=== PATIENT | female | born 1995 | race Caucasian/White ===

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

== ENCOUNTER → 2017-06-06 | Outpatient (CLI) | payer OTHER ==
[2017-06-06 12:57] LABS: BASO % 0.6 %; BASO ABS # 0.03 K/uL (0-0.2); EOS % 2.1 %; EOS ABS # 0.11 K/uL (0-0.5); HEMATOCRIT 43.1 % (37-47); HEMOGLOBIN 14.8 g/dL (12.0-16.0); IG# 0.01 K/uL (0.00-0.02); LYMPH % 40.4 %; LYMPH ABS # 2.12 K/uL (1.2-3.4); MEAN CELL VOLUME 87.8 fL (80-100); MEAN CORPUSCULAR HEMOGLOBIN 30.1 pg (25-34); MEAN CORPUSCULAR HGB CONC 34.3 g/dl (32-36); MEAN PLATELET VOLUME 9.6 fL (7.4-10.4); MONO % 5.3 %; MONO ABS # 0.28 K/uL (0.11-0.59); NEUT % 51.4 %; PLATELET COUNT 308 K/uL (130-400); RED CELL DISTRIBUTION WIDTH CV 13.4 % (11.5-14.5); RED CELL DISTRIBUTION WIDTH SD 42.9 fL (36.4-46.3); WHITE BLOOD COUNT 5.25 K/uL (4.8-10.8)
== END | disposition home or self-care (01) ==
LOC: C.LABPBG 07:56
PROVIDERS: ATTEND Physician Assistant
DX: Z13.21 Encounter for screening for nutritional disorder (principal); R53.83 Other fatigue

== ENCOUNTER → 2017-06-09 | Outpatient (CLI) | payer OTHER ==
--- NOTE | 2017-06-09 16:00 | DIAGNOSTIC IMAGING REPORT ---
SOFT TISS HEAD/NECK-THYROID CLINICAL HISTORY: 21 years-old Female with CERVICAL LYMPHADENOPATHY. Chronic enlarged cervical lymph nodes COMPARISON: CT soft tissue neck 06/29/2016 TECHNIQUE: Multiple real time sonographic images of the neck were obtained accessing liriano scale appearance and color doppler flow. FINDINGS: Lymph nodes of the bilateral neck are seen, normal in size on the left measuring up to 8 mm in short axis with normal fatty bishop. Lymph nodes with normal echogenic fatty bishop are also seen on the right, largest of which measure up to 1.0 cm in short axis, upper limits of normal. No pathologically enlarged lymph nodes are identified. IMPRESSION: No pathologically enlarged lymph nodes are identified. Mildly prominent lymph node of the right neck measures up to 1.0 cm in short axis, upper limits of normal and is likely physiologic. Correlation with clinical exam and patient history recommended. The above report was generated using voice recognition software. It may contain grammatical, syntax or spelling errors. Electronically signed by: Cb Olmstead M.D. 06/09/2017 3:58 PM Dictated Date/Time: 06/09/2017 3:54 PM
== END | disposition home or self-care (01) ==
LOC: C.ULTR 15:29
PROVIDERS: ATTEND Physician Assistant
DX: R59.0 Localized enlarged lymph nodes (principal)

== ENCOUNTER → 2017-06-09 | Outpatient (CLI) | payer OTHER ==
[2017-06-09 09:46] LABS: BLOOD UREA NITROGEN 5 mg/dl (7-18); CALCIUM 8.8 mg/dl (8.5-10.1); CARBON DIOXIDE 26 mmol/L (21-32); CHOLESTEROL 188 mg/dl (0-200); CREATININE 0.74 mg/dl (0.60-1.20); GLUCOSE 88 mg/dl (70-99); SODIUM 138 mmol/L (136-145)
[2017-06-09 09:49] LABS: LDL CHOLESTEROL CALCULATED 110 mg/dl
[2017-06-13 15:13] LABS: EBV EARLY ANTIGEN AB < 9.00 U/ML
== END | disposition home or self-care (01) ==
LOC: C.LAB1850 07:50
PROVIDERS: ATTEND Family Medicine
DX: R59.0 Localized enlarged lymph nodes (principal); F41.9 Anxiety disorder, unspecified; Z13.220 Encounter for screening for lipoid disorders

== ENCOUNTER → 2017-09-15 | Outpatient (CLI) | payer OTHER ==
--- NOTE | 2017-09-15 18:00 | DIAGNOSTIC IMAGING REPORT ---
TWO VIEW CHEST CLINICAL HISTORY: Dyspnea on exertion. Smoking history. FINDINGS: PA and lateral chest radiographs are obtained. No prior studies are available for comparison at the time of dictation. The cardiomediastinal silhouette is unremarkable. The lungs and pleural spaces are clear. There is no pneumothorax. The bony thorax appears intact. IMPRESSION: No active disease in the chest. Electronically signed by: Nj Holland M.D. 09/15/2017 5:58 PM Dictated Date/Time: 09/15/2017 5:58 PM
== END | disposition home or self-care (01) ==
LOC: C.RAD1850 16:19
PROVIDERS: ATTEND Family Medicine
DX: R06.09 Other forms of dyspnea (principal); F17.210 Nicotine dependence, cigarettes, uncomplicated

== ENCOUNTER → 2017-09-19 | Outpatient (CLI) | payer OTHER ==
--- NOTE | 2017-09-19 16:56 | DIAGNOSTIC IMAGING REPORT ---
SOFT TISSUE NECK WITHOUT CLINICAL HISTORY: R59.0 Cervical lymphadenopathy adenopathy TECHNIQUE: Transaxial acquisition with multi axial reformatted images COMPARISON STUDY: 06/29/2016 FINDINGS: Similar study compared to the prior exam. A palpable nodule similar compared to the prior study in terms of location relates to a grouping of nodes haven't in greatest overall dimension of 1.5 cm. This is unchanged. Several additional cervical nodes throughout the cervical chains bilaterally are unaltered from the prior exam. Appearance is nonspecific, possibly of cervical adenitis is a consideration given the patient's age. There does not appear to be evidence for progressive bolivar change. There is no evidence for airway compromise. The glottic and subglottic regions are unremarkable. IMPRESSION: 1. Unchanged nonspecific adenopathy throughout the cervical region compared to the prior exam. 2. The palpable nodularity relates to a cluster of nodes having a maximum conglomerate dimension of 1.5 cm. 3. This is unchanged from the prior study. 4. All additional nodes are unchanged. The above report was generated using voice recognition software. It may contain grammatical, syntax or spelling errors. Electronically signed by: Andrez Dobbins M.D. 09/19/2017 4:55 PM Dictated Date/Time: 09/19/2017 4:49 PM
== END | disposition home or self-care (01) ==
LOC: C.CTS 16:30
PROVIDERS: ATTEND Family Medicine
DX: R59.0 Localized enlarged lymph nodes (principal)

== ENCOUNTER 2023-02-08 18:21 | Inpatient (IN) ==
--- NOTE | 2023-02-08 18:30 | ED Triage Note ---
Date of Service February 08, 2023 Provider in Triage Author: Kalani Knight History of Present Illness This patient was briefly evaluated while in triage. An abbreviated physical exam was performed. This patient is a 27-year-old Female who presents to the ED for evaluation of chest pain, tested positive 01/31 for COVID. Pt states bilateral chest pain, abdomen pain, nausea/vomiting, weakness. Physical Exam Initial orders for labs and / or imaging were placed and patient was placed in the waiting area until a bed is available. Please see further documentation for the full ED course.
[2023-02-08] MEDS ORDERED: ONDANSETRON INJ 2 MG/ML 2 ML VIAL IV STA (18:32)
--- NOTE | 2023-02-08 19:41 | XRay Report ---
SINGLE VIEW CHEST CLINICAL HISTORY: Atypical chest pain FINDINGS: A PA chest radiograph is compared to study dated 02/05/2023. The cardiomediastinal silhouet te is unremarkable. There is an apparent airspace opacity at the left lung base. The right lung is cl ear. No pleural effusion or pneumothorax is seen. The bony thorax is grossly intact. IMPRESSION: There is an apparent airspace opacity at the left lung base which may represent superimpo sed soft tissue. Correlate clinically for evidence of pneumonia. A PA and lateral examination could b e considered for reassessment. ACT 112: Negative or not required by law. Electronically signed by: Nj Holland M.D. 02/08/2023 7:39 PM
[2023-02-08 20:01] LABS: Basophils # (auto) 0.05 K/uL (0.00-0.20); Basophils % (auto) 0.6 %; Eosinophils # (auto) 0.12 K/uL (0.00-0.50); Eosinophils % (auto) 1.3 %; Hematocrit (blood only) 45.4 % (37.0-47.0); Hemoglobin 16.7 g/dl (12.0-16.0); Immature Granulocytes # (auto) 0.04 K/uL (0.01-0.20); Immature Granulocytes % (auto) 0.4 %; Lymphocytes # (auto) 2.01 K/uL (1.20-3.40); Lymphocytes % (auto) 22.3 %; Mean Corpuscular Hemoglobin 30.3 pg (25.0-34.0); Mean Corpuscular Hgb Conc 36.8 g/dL (32.0-36.0); Mean Corpuscular Volume 82.4 fL (80.0-100.0); Mean Platelet Volume 10.3 fL (9.4-12.4); Monocytes # (auto) 0.58 K/uL (0.11-0.59); Monocytes % (auto) 6.4 %; Neutrophils # (auto) 6.23 K/uL (1.40-6.50); Platelet Count 240 K/uL (130-400); RDW Coefficient of Variation 11.9 % (11.5-14.5); RDW Standard Deviation 35.8 fL (36.4-46.3); Red Blood Count 5.51 M/uL (4.20-5.40); White Blood Count 9.03 K/ul (4.8-10.8)
[2023-02-08] MEDS: SODIUM CHLORIDE 0.9% 1,000 ML IV SCH ×4 (20:14→23:17)
[2023-02-08 20:19] LABS: Pregnancy Test, Serum Negative (Negative)
[2023-02-08 20:20] LABS: Alanine Aminotransferase 38 U/L (7-52); Albumin Globulin Ratio 1.2 (0.9-2); Albumin Level 4.4 gm/dl (3.4-5.0); Alkaline Phosphatase 68 U/L (34-104); Anion Gap 17 (3-11); Aspartate Aminotransferase 30 U/L (13-39); BUN Creatinine Ratio 17.8 (10-20); Bilirubin,Total 1.2 mg/dl (0.2-1.0); Blood Urea Nitrogen 13 mg/dl (6-23); Carbon Dioxide 17 mmol/L (21-32); Chloride 104 mmol/L (98-107); Est GFR (African American) 132.7 ml/min; Est GFR (Non-African American) 114.5 ml/min; Globulin 3.6 gm/dl (2.5-4.0); Glucose 73 mg/dl (70-99(Fasting)); Lipase 21 U/L (11-82); Potassium 4.1 mmol/L (3.5-5.1); Sodium 138 mmol/L (136-145)
[2023-02-08 20:25] LABS: Troponin I High Sensitivity < 2.3 pg/ml (0-14)
[2023-02-08 20:34] LABS: Appearance Urine Turbid (Clear); Bacteria Urine Automated 2+ (Negative); Bilirubin Urine Negative (Negative); Blood Urine Trace (Negative); Color Urine Orange; Epithelial Cell Urine Auto >30 /lpf (0-5); Glucose Urine UA Negative (Negative); Ketones Urine 4+ (Negative); Leukocyte Esterase Urine 1+ (Negative); Nitrite Urine Negative (Negative); Protein Urine 1+ (Negative); RBC Urine Automated 0-4 /hpf (0-4); Specific Gravity Urine 1.031 (1.000-1.030); Urobilinogen Urine Negative (Negative); WBC Urine Automated >30 /hpf (0-5); pH Urine 5.5 (4.5-7.5)
[2023-02-08 20:51] LABS: Cast Urine Automated 0 /lpf (0-5)
[2023-02-08] MEDS ORDERED: OPTIRAY 320 500ml IV ONE (20:55)
--- NOTE | 2023-02-08 21:24 | CT Scan Report ---
Exam(s): CT ABDOMEN + PELVIS With Contrast IV Amt: 88ML OPTIRAY 320 EXAM: CT Abdomen and Pelvis With Intravenous Contrast CLINICAL HISTORY: Abdomen pain. TECHNIQUE: Axial computed tomography images of the abdomen and pelvis with intravenous contrast. CTDI is 8.5 mGy and DLP is 380.88 mGy-cm. Automated exposure control was utilized for the study. A dose lowering technique was utilized adhering to the principles of ALARA. CONTRAST: Patient received 88ML OPTIRAY 320 of IV contrast COMPARISON: No relevant prior studies available. FINDINGS: Lung bases: Unremarkable. No mass. No consolidation. ABDOMEN: Liver: Unremarkable. No mass. Gallbladder and bile ducts: Unremarkable. No calcified stones. No ductal dilation. Pancreas: Unremarkable. No mass. No ductal dilation. Spleen: Unremarkable. No splenomegaly. Adrenals: Unremarkable. No mass. Kidneys and ureters: Unremarkable. No solid mass. No hydronephrosis. Stomach and bowel: Unremarkable. No obstruction. No mucosal thickening. PELVIS: Appendix: Normal appendix. Bladder: Unremarkable. No mass. Reproductive: Unremarkable as visualized. ABDOMEN and PELVIS: Intraperitoneal space: Trace free fluid in the pelvis is nonspecific. No free air. Bones/joints: No acute fracture. No dislocation. Soft tissues: Unremarkable. Vasculature: Unremarkable. No abdominal aortic aneurysm. Lymph nodes: Unremarkable. No enlarged lymph nodes. IMPRESSION: Trace free fluid in the pelvis is nonspecific. Otherwise, no acute finding. Electronically signed by: Tamia Urena MD 02/08/23 21:23 PM
[2023-02-08] MEDS ORDERED: cefTRIAXone SODIUM 2,000 MG/50 ML BAG IV STA (21:58)
[2023-02-08] MEDS ORDERED: METOCLOPRAMIDE HCL INJ 5 MG/ML 2 ML VIAL IV STA (22:04)
[2023-02-08] MEDS ORDERED: ALUMINUM/MAGNESIUM SUSP 30 ML UDC PO STA (22:07)
--- NOTE | 2023-02-08 22:07 | Emergency Department Note ---
Impression & Plan Abdominal pain, Nausea & vomiting, Dehydration, Metabolic acidosis ED Provider Note NAME: TU ELY AGE: 27 SEX: F : 1995 ARRIVES VIA: Walk-In INFORMANT: Patient ED PROVIDER(S): Burke Morrow DO CHIEF COMPLAINT: abdominal pain HPI: Patient is a 27-year-old female who presents ER for epigastric abdominal pain which started after [place]. She notes she was positive for COVID and had some cough and congestion that has gone away. She notes nausea, vomiting, and pain in the epigastric region has been present since then but got worse recently. She notes that she has follow-up with her PCP and was seen here as well for this. She notes she is unable to eat or drink anything. No dysuria, urgency, or frequency. No shortness of breath. No chest pain currently. No other exacerbating or remitting factors. ADDITIONAL HISTORY OBTAINED: Per HPI Chronic Medical/Social Conditions Affecting Care: Per HPI PAST MEDICAL HISTORY:See Below PAST SURGICAL HISTORY:See Below FAMILY HISTORY:See Below SOCIAL HISTORY:See Below HOME MEDICATIONS:See Below ALLERGIES:See Below VITALS:See Below PHYSICAL EXAMINATION: GENERAL: Sitting up in bed, alert, tearful, holding her abdomen EYE EXAM: normal conjunctiva. OROPHARYNX:mucous membranes are dry NECK: supple, no nuchal rigidity, no adenopathy, non-tender LUNGS: Clear to auscultation. Normal chest wall mechanics HEART: no murmurs, S1 normal and S2 normal ABDOMEN: abdomen soft, TTP in epigastric region, normo-active bowel sounds, no masses, no rebound or guarding. UPPER EXTREMITIES: upper extremities are grossly normal. LOWER EXTREMITIES: No pitting edema. NEURO EXAM: Normal sensorium, cranial nerves II-XII grossly intact, normal speech, no gross weakness of arms, no gross weakness of legs. MEDICAL DECISION MAKING: Patient is a 27-year-old female who presents ER for above-stated complaint. IV was established blood work was obtained. Labs show no significant leukocytosis. No anemia. VBG with pH 7.2 which was obtained as her BMP had a bicarb of 17. Bicarb on VBG was 14. Bilirubin normal 1.2. LFTs troponin and lipase were negative. hCG was negative. UA was contaminated but patient was covered with IV antibiotics. She was also given IV fluids, Reglan, morphine and Phenergan. She still had vomiting while in the ER was discussed with the hospitalist for further evaluation management treatment and admission due to the persistent vomiting with a metabolic acidosis which was gapped. She was not in DKA. Chest x-ray per my initial interpretation showed no focal infiltrate. This was read by radiology and questioned a left lower lobe infiltrate. Upon review of the CT in the lower lungs there is no infiltrate. Patient was already given IV antibiotics. Will defer to the hospitalist for further treatment in setting of recent COVID pneumonia. Consults/Care Managements Discussions: Per [facility] Triage Nursing notes reviewed. Limited review of prior medical records performed Vital Signs: reviewed and remarkable for no significant abnormalities Differential diagnosis: Differential diagnoses includes but is not limited to gastritis, peptic ulcer disease, GERD, gallbladder disease, pancreatitis, small bowel obstruction, appendicitis, diverticulitis, hernia, urinary tract infection, torsion, perforation, trauma, infectious. ER treatment provided: See below Diagnostics interpreted by me include EKG and cardiac monitoring as listed below: -Cardiac Monitoring: An order was placed for continuous cardiac monitoring. The monitor shows a rate of 90 with sinus rhythm. -ECG: Sinus rhythm rate 82 Normal axis No PVCs QTc 455 -Laboratory studies:Interpreted by me as stated above in MDM and shown below. Imaging studies: Xrays: As interpreted by me: Chest x-ray with a left lower lobe infiltrate CTs show: CT abdomen pelvis was unremarkable and there is no obvious left lower lobe infiltrate Procedures:none Critical Care: None Past Med/Surg History Medical History (Updated 02/09/23 @ 01:45 by Burke Morrow DO) Palpitations Fatigue Dyspnea on exertion Chest pain Cervical lymphadenopathy Anxiety Family History (Updated 08/13/18 @ 16:31 by Jerel Grijalva) Mother Anxiety Hypertension Grandmother (Maternal) , 57 Brain cancer Grandfather (Paternal) Diabetes Kidney disease Denies family history of Ovarian cancer Prostate cancer Myocardial infarction Breast cancer Colorectal cancer Social History (Updated 08/13/18 @ 16:33 by Jerel Grijalva) Smoking Status: Current every day smoker Tobacco Type: E-cigarettes / Vaping packs per day: 0.5; Hx Alcohol Use: No Hx Substance Use: No Preferred Language: Macedonian Visual Impairment: No Limitations Hearing Ability: Normal marital status: Single marital status details: ORAL CONTRACEPTIVE USE Current Living Situation Comment: LIVES WITH [employer] current occupational status: employed current occupation: [employer] S[employer] Feels Safe at Home: Yes Dental Care, Regularly: Yes Physical Activity Frequency: Does not Exercise Allergies Allergies Allergy/AdvReac Type Severity Reaction Status Date / Time Pollen Allergy Intermediate Sneezing Uncoded 02/05/23 17:23 Home Meds Home Medications Medication Instructions Recorded Confirmed pantoprazole 20 mg tablet,delayed 20 mg PO DAILY 02/08/23 02/08/23 release rizatriptan 5 mg tablet 5 mg PO UD PRN Migraine Headache 02/08/23 02/08/23 Previous Rx's Medication Instructions Recorded ondansetron 4 mg disintegrating 4 mg PO Q6H PRN nausea and 02/05/23 tablet vomiting #15 tabs Results & Data (ED) Vital Signs Vital Signs - 24 hr 02/08/23 18:31 02/09/23 00:00 Temperature 36.6 C Temperature Source Temporal Artery Scan Pulse Rate 92 H Pulse Rate [Finger] 89 Respiratory Rate 18 18 Respiratory Effort / Characteristics Non-Labored Spontaneous Respiratory Depth Normal Respiratory Pattern Regular Blood Pressure 99/68 L Blood Pressure [Right Arm] 106/74 Blood Pressure Mean 78 Blood Pressure Mean [Right Arm] 84 Blood Pressure Position Sitting Pulse Oximetry 99 100 Oxygen Delivery Method Room Air Room Air Sepsis Recent Fever Within 48 Hours No Sepsis New/Unexplained Change in Mental Status N/A Sepsis Action Taken by Nursing No Action Required Laboratory Data 02/08/23 19:45 02/08/23 19:45 Lab Results 02/08/23 02/08/23 02/08/23 Range/Units 19:45 20:07 22:32 WBC 9.03 (4.8-10.8) K/ul RBC 5.51 H (4.20-5.40) M/uL Hgb 16.7 H (12.0-16.0) g/dl Hct 45.4 (37.0-47.0) % MCV 82.4 (80.0-100.0) fL MCH 30.3 (25.0-34.0) pg MCHC 36.8 H (32.0-36.0) g/dL RDW Std Deviation 35.8 L (36.4-46.3) fL RDW Coeff of Dominique 11.9 (11.5-14.5) % Plt Count 240 (130-400) K/uL MPV 10.3 (9.4-12.4) fL Immature Gran % (Auto) 0.4 % Neut % (Auto) 69.0 % Lymph % (Auto) 22.3 % Will % (Auto) 6.4 % Eos % (Auto) 1.3 % Baso % (Auto) 0.6 % Neut # (Auto) 6.23 (1.40-6.50) K/uL Lymph # (Auto) 2.01 (1.20-3.40) K/uL Will # (Auto) 0.58 (0.11-0.59) K/uL Eos # (Auto) 0.12 (0.00-0.50) K/uL Baso # (Auto) 0.05 (0.00-0.20) K/uL Immature Gran # (Auto) 0.04 (0.01-0.20) K/uL VBG pH 7.21 L (7.36-7.41) VBG pCO2 36 L (38-50) mmHg VBG pO2 35 mmHg VBG HCO3 14 mmol/L VBG O2 Saturation < 60.0 % VBG Base Excess -12.6 mEq/L Sodium 138 (136-145) mmol/L Potassium 4.1 (3.5-5.1) mmol/L Chloride 104 (98-107) mmol/L Carbon Dioxide 17 L (21-32) mmol/L Anion Gap 17 H (3-11) BUN 13 (6-23) mg/dl Creatinine 0.73 (0.6-1.2) mg/dl Est Cr Clr Drug Dosing Not Reportable Est GFR ( Amer) 132.7 ml/min Est GFR (Non-Af Amer) 114.5 ml/min BUN/Creatinine Ratio 17.8 (10-20) Glucose 73 (70-99(Fasting)) mg/dl Calcium 10.0 (8.6-10.3) mg/dl Total Bilirubin 1.2 H (0.2-1.0) mg/dl AST 30 (13-39) U/L ALT 38 (7-52) U/L Alkaline Phosphatase 68 (34-104) U/L Troponin I High Sens < 2.3 (0-14) pg/ml Total Protein 8.0 (6.0-8.3) gm/dl Albumin 4.4 (3.4-5.0) gm/dl Globulin 3.6 (2.5-4.0) gm/dl Albumin/Globulin Ratio 1.2 (0.9-2) Lipase 21 (11-82) U/L HCG, Qual Negative (Negative) Urine Color [place] Urine Appearance Turbid A (Clear) Urine pH 5.5 (4.5-7.5) Ur Specific [place] 1.031 H (1.000-1.030) Urine Protein 1+ H (Negative) Urine Glucose (UA) Negative (Negative) Urine Ketones 4+ H (Negative) Urine Blood Trace H (Negative) Urine Nitrite Negative (Negative) Urine Bilirubin Negative (Negative) Urine Urobilinogen Negative (Negative) Ur Leukocyte Esterase 1+ H (Negative) Urine WBC (Auto) >30 H (0-5) /hpf Urine RBC (Auto) 0-4 (0-4) /hpf U Hyaline Cast (Auto) 0 (0-5) /lpf U Epithel Cells (Auto) >30 H (0-5) /lpf Urine Bacteria (Auto) 2+ H (Negative) Administered Medications Discontinued Medications Al Hydrox/Mg Hydrox/Simethicone (Aluminum/Magnesium Susp 30 Ml Udc) 15 ml PO NOW STA Stop: 02/08/23 22:08 Last Admin: 02/08/23 23:17 Dose: Not Given Documented By: CLEMENTE Sodium Chloride (Nss) 1,000 mls @ 999 mls/hr IV .Q1H1M SANDRA Stop: 02/08/23 20:45 Last Infusion: 02/08/23 22:20 Dose: Infused Documented By: Admin: 02/08/23 21:16 Dose: 999 mls/hr Documented By: Infusion: 02/08/23 21:15 Dose: Infused Documented By: Admin: 02/08/23 20:14 Dose: 999 mls/hr Documented By: LILIA Ceftriaxone Sodium (Rocephin) 2,000 mg in 50 mls @ 100 mls/hr IV NOW STA Stop: 02/08/23 22:27 Last Infusion: 02/08/23 23:09 Dose: Infused Documented By: Admin: 02/08/23 22:34 Dose: 100 mls/hr Documented By: RICHARD Sodium Chloride (Nss) 1,000 mls @ 999 mls/hr IV .Q1H1M SANDRA Stop: 02/09/23 00:00 Last Infusion: 02/09/23 00:40 Dose: Infused Documented By: Admin: 02/08/23 23:17 Dose: 999 mls/hr Documented By: Infusion: 02/08/23 23:17 Dose: Infused Documented By: Admin: 02/08/23 22:34 Dose: 999 mls/hr Documented By: RICHARD Promethazine HCl (Phenergan) 12.5 mg in 50.5 mls @ 202 mls/hr IV NOW STA Stop: 02/08/23 23:15 Last Infusion: 02/08/23 23:33 Dose: Infused Documented By: Admin: 02/08/23 23:17 Dose: 202 mls/hr Documented By: CLEMENTE Ioversol (Optiray 320 500ml) 88 ml IV ONCE ONE Stop: 02/08/23 20:56 Last Admin: 02/08/23 20:55 Dose: 88 ml Documented By: SHAYY Metoclopramide HCl (Metoclopramide Hcl Inj 5 Mg/Ml 2 Ml Vial) 10 mg IV NOW STA Stop: 02/08/23 22:05 Last Admin: 02/08/23 22:34 Dose: 10 mg Documented By: RICHARD Morphine Sulfate (Morphine Sulfate 4 Mg/Ml 1 Ml Carp\Vial) 4 mg IV NOW STA Stop: 02/08/23 23:02 Last Admin: 02/08/23 23:17 Dose: 4 mg Documented By: CLEMENTE Ondansetron HCl (Ondansetron Inj 2 Mg/Ml 2 Ml Vial) 4 mg IV NOW STA Stop: 02/08/23 18:33 Last Admin: 02/08/23 20:19 Dose: 4 mg Documented By: LILIA Imaging Data Radiologist's Impression: Abdomen/Pelvis CT 02/08/23 18:32 Exam(s): CT ABDOMEN + PELVIS With Contrast IV Amt: 88ML OPTIRAY 320 EXAM: CT Abdomen and Pelvis With Intravenous Contrast CLINICAL HISTORY: Abdomen pain. TECHNIQUE: Axial computed tomography images of the abdomen and pelvis with intravenous contrast. CTDI is 8.5 mGy and DLP is 380.88 mGy-cm. Automated exposure control was utilized for the study. A dose lowering technique was utilized adhering to the principles of ALARA. CONTRAST: Patient received 88ML OPTIRAY 320 of IV contrast COMPARISON: No relevant prior studies available. FINDINGS: Lung bases: Unremarkable. No mass. No consolidation. ABDOMEN: Liver: Unremarkable. No mass. Gallbladder and bile ducts: Unremarkable. No calcified stones. No ductal dilation. Pancreas: Unremarkable. No mass. No ductal dilation. Spleen: Unremarkable. No splenomegaly. Adrenals: Unremarkable. No mass. Kidneys and ureters: Unremarkable. No solid mass. No hydronephrosis. Stomach and bowel: Unremarkable. No obstruction. No mucosal thickening. PELVIS: Appendix: Normal appendix. Bladder: Unremarkable. No mass. Reproductive: Unremarkable as visualized. ABDOMEN and PELVIS: Intraperitoneal space: Trace free fluid in the pelvis is nonspecific. No free air. Bones/joints: No acute fracture. No dislocation. Soft tissues: Unremarkable. Vasculature: Unremarkable. No abdominal aortic aneurysm. Lymph nodes: Unremarkable. No enlarged lymph nodes. IMPRESSION: Trace free fluid in the pelvis is nonspecific. Otherwise, no acute finding. Electronically signed by: Tamia Urena MD 02/08/23 21:23 PM Chest X-Ray 02/08/23 18:32 SINGLE VIEW CHEST CLINICAL HISTORY: Atypical chest pain FINDINGS: A PA chest radiograph is compared to study dated 02/05/2023. The cardiomediastinal silhouette is unremarkable. There is an apparent airspace opacity at the left lung base. The right lung is clear. No pleural effusion or pneumothorax is seen. The bony thorax is grossly intact. IMPRESSION: There is an apparent airspace opacity at the left lung base which may represent superimposed soft tissue. Correlate clinically for evidence of pneumonia. A PA and lateral examination could be considered for reassessment. ACT 112: Negative or not required by law. Electronically signed by: Nj Holland M.D. 02/08/2023 7:39 PM Discharge Plan Visit Data Chief Complaint: Chest Pain Stated Complaint: CHEST PAIN, ABDOMINAL PAIN, COVID, VOMITING ED Provider: Burke Morrow Discharge Problem: Abdominal pain, Nausea & vomiting, Dehydration, Metabolic acidosis Forms Stand Alone Forms: My [facility] Prescriptions Prescriptions: No Action ondansetron 4 mg tablet,disintegrating 4 mg PO Q6H PRN (Reason: nausea and vomiting) Qty: 15 0RF pantoprazole 20 mg tablet,delayed release (DR/EC) 20 mg PO DAILY rizatriptan 5 mg tablet 5 mg PO UD PRN (Reason: Migraine Headache) Rx Instructions: take 5 mg orally once at onset of headache, may repeat once after 2 hour if needed Referrals Referrals: Bailee Hartley M.D. [Primary Care Provider] - Discharge Problem: Abdominal pain Qualifiers: Abdominal location: unspecified location Qualified Code(s): R10.9 - Unspecified abdominal pain Nausea & vomiting Qualifiers: Vomiting type: unspecified Qualified Code(s): R11.2 - Nausea with vomiting, unspecified
[2023-02-08 22:45] LABS: Base Excess VBG -12.6 mEq/L; HCO3 VBG 14 mmol/L; Oxygen Saturation VBG < 60.0 %; PCO2 VBG 36 mmHg (38-50); PO2 VBG 35 mmHg; pH VBG 7.21 (7.36-7.41)
[2023-02-08] MEDS ORDERED: PROMETHAZINE 12.5 MG/50.5 ML BAG IV STA (23:01)
[2023-02-08] MEDS ORDERED: MoRPHine SULFATE 4 MG/ML 1 ML CARP\\VIAL IV STA (23:01)
[2023-02-09] MEDS ORDERED: SODIUM BICARB 8.4% INJ 50 MEQ/50 ML SYR IV STA (01:55)
[2023-02-09] MEDS ORDERED: MoRPHine SULFATE 4 MG/ML 1 ML CARP\\VIAL IV STA (01:55)
[2023-02-09] MEDS: D5W AND 1/2NSS 1,000 ML IV SCH ×3 (03:12→20:02)
--- NOTE | 2023-02-09 04:05 | History & Physical Report ---
Date of Service February 09, 2023 Assessment & Plan (1) Nausea & vomiting: Plan: 27-year-old female with past medical history significant for allergic rhinitis, vitamin D deficiency, history of intractable migraine, iron deficiency anemia secondary to inadequate dietary iron intake, comes because of ongoing nausea and vomiting some chest discomfort and shortness of breath since several days. She says symptoms started after she was diagnosed with COVID in January 29, 2023. She was in the ER on but she improved after IV fluids and DuoNebs and discharged home on albuterol inhaler. Patient still having persistent nausea and vomiting not able to take anything. Not eating. Albuterol inhaler is not working. Having abdominal pain. On and off chest discomfort and shortness of breath. Has some mild cough. Has some headache. Vision is okay. No runny nose or sore throat currently. Currently afebrile. Did not move her bowels for several days. Not micturating much. Hemodynamically stable. Nausea and vomiting Abdominal pain States ongoing since she was diagnosed COVID in January 29, 2023 Was in the ER on February 05, 2023 but improved with the fluids and DuoNebs Poor oral intake Will continue IV fluids, IV antiemetics as needed, IV morphine as needed for abdominal pain and IV Pepcid If persistent will consult GI UTI Possible cause of her symptoms Empiric Rocephin Will follow the cultures Metabolic acidosis Anion gap Possibly from nausea vomiting and starvation D5 normal saline at rate of 125 mill per hour Will follow repeat labs and repeat ABG chest pain and shortness of breath Will get chest x-ray PA and lateral view Initial EKG and troponin negative We will follow repeat EKG and troponins DuoNebs as needed for now DVT prophylaxis SCDs for now Disposition Med/tele Full code History of Present Illness Chief Complaint: Nausea and vomiting and chest discomfort Primary Care Provider: Bailee Hartley 27-year-old female with past medical history significant for allergic rhinitis, vitamin D deficiency, history of intractable migraine, iron deficiency anemia secondary to inadequate dietary iron intake, comes because of ongoing nausea and vomiting some chest discomfort and shortness of breath since several days. She says symptoms started after she was diagnosed with COVID on January 29, 2023. She was in the ER on but she improved after IV fluids and DuoNebs and discharged home on albuterol inhaler. Patient still having persistent nausea and vomiting not able to take anything. Not eating. Albuterol inhaler is not working. Having abdominal pain. On and off chest discomfort and shortness of breath. Has some mild cough. Has some headache. Vision is okay. No runny nose or sore throat currently. Currently afebrile. Did not move her bowels for several days. Not micturating much. Hemodynamically stable. Past medical history. As mentioned above Past surgical history. Dental surgery. Social history. Former smoker. No alcohol use. No drug use. Family history. Maternal grandmother had cancer. Maternal grandfather had diabetes. Mother has hypertension. Allergies Allergy/AdvReac Type Severity Reaction Status Date / Time Pollen Allergy Intermediate Sneezing Uncoded 02/05/23 17:23 Home Medications Medication Instructions Recorded Confirmed Type ondansetron 4 mg disintegrating 4 mg PO Q6H PRN nausea and 02/05/23 02/08/23 Rx tablet vomiting #15 tabs pantoprazole 20 mg tablet,delayed 20 mg PO DAILY 02/08/23 02/08/23 History release rizatriptan 5 mg tablet 5 mg PO UD PRN Migraine Headache 02/08/23 02/08/23 History Past Med/Surg History Medical History (Updated 02/09/23 @ 01:45 by Burke Morrow DO) Palpitations Fatigue Dyspnea on exertion Chest pain Cervical lymphadenopathy Anxiety Family History (Updated 08/13/18 @ 16:31 by Jerel Grijalva) Mother Anxiety Hypertension Grandmother (Maternal) , 57 Brain cancer Grandfather (Paternal) Diabetes Kidney disease Denies family history of Ovarian cancer Prostate cancer Myocardial infarction Breast cancer Colorectal cancer Social History (Updated 08/13/18 @ 16:33 by Jerel Grijalva) Smoking Status: Current every day smoker Tobacco Type: E-cigarettes / Vaping packs per day: 0.5; Hx Alcohol Use: No Hx Substance Use: No Preferred Language: Mosotho Visual Impairment: No Limitations Hearing Ability: Normal marital status: Single marital status details: ORAL CONTRACEPTIVE USE Current Living Situation Comment: LIVES WITH [employer] current occupational status: employed 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 ENT- oropharynx dry Neck- supple, no JVD. Lungs- clear to auscultation no wheezing or crackles. Heart- regular rhythm; no murmur, no gallop. Abdomen- normal bowel sounds, soft, diffuse mild tender no distension Extremities- no pretibial edema, no erythema seen. Neuro- alert, oriented x 3; PERRL no facial palsy; no dysarthria; moves extremities. Skin- warm & dry Results & Data Results & Data Vital Signs (Past 12 Hours) Vital Signs Temp Pulse Pulse Resp BP BP Pulse Ox 02/09/23 03:00 72 18 108/77 96 02/09/23 00:00 89 18 106/74 100 02/08/23 18:31 36.6 C 92 H 18 99/68 L 99 O2 Del Method 02/09/23 03:00 Room Air 02/09/23 00:00 Room Air 02/08/23 18:31 Room Air Diagnostic Findings Laboratory Results WBC 9.03 K/ul (4.8-10.8) 02/08/23 19:45 RBC 5.51 M/uL (4.20-5.40) H 02/08/23 19:45 Hgb 16.7 g/dl (12.0-16.0) H 02/08/23 19:45 Hct 45.4 % (37.0-47.0) 02/08/23 19:45 MCV 82.4 fL (80.0-100.0) 02/08/23 19:45 MCH 30.3 pg (25.0-34.0) 02/08/23 19:45 MCHC 36.8 g/dL (32.0-36.0) H 02/08/23 19:45 RDW Std Deviation 35.8 fL (36.4-46.3) L 02/08/23 19:45 RDW Coeff of Dominique 11.9 % (11.5-14.5) 02/08/23 19:45 Plt Count 240 K/uL (130-400) 02/08/23 19:45 MPV 10.3 fL (9.4-12.4) 02/08/23 19:45 Immature Gran % (Auto) 0.4 % 02/08/23 19:45 Neut % (Auto) 69.0 % 02/08/23 19:45 Lymph % (Auto) 22.3 % 02/08/23 19:45 [place] % (Auto) 6.4 % 02/08/23 19:45 Eos % (Auto) 1.3 % 02/08/23 19:45 Baso % (Auto) 0.6 % 02/08/23 19:45 Neut # (Auto) 6.23 K/uL (1.40-6.50) 02/08/23 19:45 Lymph # (Auto) 2.01 K/uL (1.20-3.40) 02/08/23 19:45 [place] # (Auto) 0.58 K/uL (0.11-0.59) 02/08/23 19:45 Eos # (Auto) 0.12 K/uL (0.00-0.50) 02/08/23 19:45 Baso # (Auto) 0.05 K/uL (0.00-0.20) 02/08/23 19:45 Immature Gran # (Auto) 0.04 K/uL (0.01-0.20) 02/08/23 19:45 VBG pH 7.21 (7.36-7.41) L 02/08/23 22:32 VBG pCO2 36 mmHg (38-50) L 02/08/23 22:32 VBG pO2 35 mmHg 02/08/23 22:32 VBG HCO3 14 mmol/L 02/08/23 22:32 VBG O2 Saturation < 60.0 % 02/08/23 22:32 VBG Base Excess -12.6 mEq/L 02/08/23 22:32 Sodium 138 mmol/L (136-145) 02/08/23 19:45 Potassium 4.1 mmol/L (3.5-5.1) 02/08/23 19:45 Chloride 104 mmol/L (98-107) 02/08/23 19:45 Carbon Dioxide 17 mmol/L (21-32) L 02/08/23 19:45 Anion Gap 17 (3-11) H 02/08/23 19:45 BUN 13 mg/dl (6-23) 02/08/23 19:45 Creatinine 0.73 mg/dl (0.6-1.2) 02/08/23 19:45 Est Cr Clr Drug Dosing Not Reportable 02/08/23 19:45 Est GFR ( Amer) 132.7 ml/min 02/08/23 19:45 Est GFR (Non-Af Amer) 114.5 ml/min 02/08/23 19:45 BUN/Creatinine Ratio 17.8 (10-20) 02/08/23 19:45 Glucose 73 mg/dl (70-99(Fasting)) 02/08/23 19:45 Calcium 10.0 mg/dl (8.6-10.3) 02/08/23 19:45 Total Bilirubin 1.2 mg/dl (0.2-1.0) H 02/08/23 19:45 AST 30 U/L (13-39) 02/08/23 19:45 ALT 38 U/L (7-52) 02/08/23 19:45 Alkaline Phosphatase 68 U/L (34-104) 02/08/23 19:45 Troponin I High Sens < 2.3 pg/ml (0-14) 02/08/23 19:45 Total Protein 8.0 gm/dl (6.0-8.3) 02/08/23 19:45 Albumin 4.4 gm/dl (3.4-5.0) 02/08/23 19:45 Globulin 3.6 gm/dl (2.5-4.0) 02/08/23 19:45 Albumin/Globulin Ratio 1.2 (0.9-2) 02/08/23 19:45 Lipase 21 U/L (11-82) 02/08/23 19:45 HCG, Qual Negative (Negative) 02/08/23 19:45 Urine Color [place] 02/08/23 20:07 Urine Appearance Turbid (Clear) A 02/08/23 20:07 Urine pH 5.5 (4.5-7.5) 02/08/23 20:07 Ur Specific [place] 1.031 (1.000-1.030) H 02/08/23 20:07 Urine Protein 1+ (Negative) H 02/08/23 20:07 Urine Glucose (UA) Negative (Negative) 02/08/23 20:07 Urine Ketones 4+ (Negative) H 02/08/23 20:07 Urine Blood Trace (Negative) H 02/08/23 20:07 Urine Nitrite Negative (Negative) 02/08/23 20:07 Urine Bilirubin Negative (Negative) 02/08/23 20:07 Urine Urobilinogen Negative (Negative) 02/08/23 20:07 Ur Leukocyte Esterase 1+ (Negative) H 02/08/23 20:07 Urine WBC (Auto) >30 /hpf (0-5) H 02/08/23 20:07 Urine RBC (Auto) 0-4 /hpf (0-4) 02/08/23 20:07 U Hyaline Cast (Auto) 0 /lpf (0-5) 02/08/23 20:07 U Epithel Cells (Auto) >30 /lpf (0-5) H 02/08/23 20:07 Urine Bacteria (Auto) 2+ (Negative) H 02/08/23 20:07 Impressions Abdomen/Pelvis CT 02/08/23 18:32 Exam(s): CT ABDOMEN + PELVIS With Contrast IV Amt: 88ML OPTIRAY 320 EXAM: CT Abdomen and Pelvis With Intravenous Contrast CLINICAL HISTORY: Abdomen pain. TECHNIQUE: Axial computed tomography images of the abdomen and pelvis with intravenous contrast. CTDI is 8.5 mGy and DLP is 380.88 mGy-cm. Automated exposure control was utilized for the study. A dose lowering technique was utilized adhering to the principles of ALARA. CONTRAST: Patient received 88ML OPTIRAY 320 of IV contrast COMPARISON: No relevant prior studies available. FINDINGS: Lung bases: Unremarkable. No mass. No consolidation. ABDOMEN: Liver: Unremarkable. No mass. Gallbladder and bile ducts: Unremarkable. No calcified stones. No ductal dilation. Pancreas: Unremarkable. No mass. No ductal dilation. Spleen: Unremarkable. No splenomegaly. Adrenals: Unremarkable. No mass. Kidneys and ureters: Unremarkable. No solid mass. No hydronephrosis. Stomach and bowel: Unremarkable. No obstruction. No mucosal thickening. PELVIS: Appendix: Normal appendix. Bladder: Unremarkable. No mass. Reproductive: Unremarkable as visualized. ABDOMEN and PELVIS: Intraperitoneal space: Trace free fluid in the pelvis is nonspecific. No free air. Bones/joints: No acute fracture. No dislocation. Soft tissues: Unremarkable. Vasculature: Unremarkable. No abdominal aortic aneurysm. Lymph nodes: Unremarkable. No enlarged lymph nodes. IMPRESSION: Trace free fluid in the pelvis is nonspecific. Otherwise, no acute finding. Electronically signed by: Tamia Urena MD 02/08/23 21:23 PM Chest X-Ray 02/08/23 18:32 SINGLE VIEW CHEST CLINICAL HISTORY: Atypical chest pain FINDINGS: A PA chest radiograph is compared to study dated 02/05/2023. The cardiomediastinal silhouette is unremarkable. There is an apparent airspace opacity at the left lung base. The right lung is clear. No pleural effusion or pneumothorax is seen. The bony thorax is grossly intact. IMPRESSION: There is an apparent airspace opacity at the left lung base which may represent superimposed soft tissue. Correlate clinically for evidence of pneumonia. A PA and lateral examination could be considered for reassessment. ACT 112: Negative or not required by law. Electronically signed by: Nj [place] M.D. 02/08/2023 7:39 PM ECG Additional Comments: ECG. Normal sinus rhythm with sinus arrhythmia rate of 52. No significant change was found. Code Status & VTE Plan VTE Prophylaxis Plan VTE Prophylaxis will be ordered: Yes (1) Nausea & vomiting Vomiting type: unspecified Qualified Code(s): R11.2 - Nausea with vomiting, unspecified
[2023-02-09] MEDS ORDERED: NITROGLYCERIN SL 0.4 MG/TAB TAB SL PRN (05:26)
[2023-02-09] MEDS ORDERED: ACETAMINOPHEN 325 MG TAB PO PRN (05:26)
[2023-02-09] MEDS: MoRPHine SULFATE 4 MG/ML 1 ML CARP\\VIAL IV PRN ×4 (06:08→19:56)
[2023-02-09 07:05] LABS: Base Excess VBG -7.7 mEq/L; HCO3 VBG 19 mmol/L; Oxygen Saturation VBG < 60.0 %; PCO2 VBG 41 mmHg (38-50); PO2 VBG 28 mmHg; pH VBG 7.27 (7.36-7.41)
[2023-02-09 07:32] LABS: Anion Gap 12 (3-11); BUN Creatinine Ratio 10.3 (10-20); Blood Urea Nitrogen 7 mg/dl (6-23); Calcium 7.4 mg/dl (8.6-10.3); Carbon Dioxide 17 mmol/L (21-32); Chloride 103 mmol/L (98-107); Est GFR (African American) 140.9 ml/min; Est GFR (Non-African American) 121.6 ml/min; Glucose 148 mg/dl (70-99(Fasting)); Magnesium 1.2 mg/dl (1.7-2.4); Phosphorus 2.7 mg/dl (2.5-4.9); Potassium 3.8 mmol/L (3.5-5.1); Sodium 132 mmol/L (136-145)
[2023-02-09 07:33] LABS: Basophils # (auto) 0.03 K/uL (0.00-0.20); Basophils % (auto) 0.4 %; Eosinophils # (auto) 0.06 K/uL (0.00-0.50); Eosinophils % (auto) 0.7 %; Hematocrit (blood only) 37.4 % (37.0-47.0); Hemoglobin 13.7 g/dl (12.0-16.0); Immature Granulocytes # (auto) 0.04 K/uL (0.01-0.20); Immature Granulocytes % (auto) 0.5 %; Lymphocytes # (auto) 1.45 K/uL (1.20-3.40); Lymphocytes % (auto) 17.1 %; Mean Corpuscular Hemoglobin 30.2 pg (25.0-34.0); Mean Corpuscular Hgb Conc 36.6 g/dL (32.0-36.0); Mean Corpuscular Volume 82.4 fL (80.0-100.0); Mean Platelet Volume 10.1 fL (9.4-12.4); Monocytes # (auto) 0.63 K/uL (0.11-0.59); Monocytes % (auto) 7.4 %; Neutrophils # (auto) 6.25 K/uL (1.40-6.50); Neutrophils % (auto) 73.9 %; Platelet Count 197 K/uL (130-400); RDW Standard Deviation 36.3 fL (36.4-46.3); Red Blood Count 4.54 M/uL (4.20-5.40); White Blood Count 8.46 K/ul (4.8-10.8)
[2023-02-09 07:38] LABS: Troponin I High Sensitivity < 2.3 pg/ml (0-14)
--- OUTSIDE RECORDS SUMMARY | 2023-02-09 08:31 | External Medical Summary | Summary of Care ---
Author Name Unknown Organization [facility] Address [address] [facility] [place] [address] Phone [phone] Care Team Providers Care Ice Hockey Coach Name Role Phone Unavailable Primary Care Provider Unavailabl e Reason for Visit * Reason Onset Date Comments Advice 02/07/2023 Encounter Details Date Type Department Care Team (Late st Contact Info) Description 02/07/2023 Telephone [address] Medicine [address] [place] [phone] Bibi [address] [place] [address] Advice Allergies No known active allergiesdocumented as of this encounter (statuses as of 02/08/2023) Medications Medication Sig Dispensed Refills Start Date End Date Status LORATADINE 10 MG PO TABS Take by mouth . 30 Tab 3 01/21/2013 Active Flintstones Multivitamin Oral Tablet Chewable Take by mouth 2 Tablets daily . 0 10/06/2021 Active Magnesium Oxide 400 (240 Mg) MG Oral Tablet Take 1 Tablet by mouth in the morning. 0 11/23/2021 Active Riboflavin 400 MG Oral Tablet Take 1 Tablet by mouth in the morning. 0 11/23/2021 Active Tretinoin 0.05 % External Cream (Retin-A)Indications :Acne vulgaris Apply to face/chest/back/sh oulders at night instead of Differin as instructed 45 g 2 01/05/2022 Active Clindamycin Phosphate 1 % External SolutionIndications: Acne vulgaris Apply to face/chest/back/sh oulders in morning as instructed 60 mL 2 06/15/2022 Active Rizatriptan Benzoate 5 MG Oral TabletIndications:In tractable migraine with aura without status migrainosus Take 1 Tablet by mouth as needed for Migraine. May repeat in 2 hours if needed 10 Tablet 5 06/15/2022 Active Scopolamine 1 MG/3DAYS Transdermal Patch 72 Hour (Transderm Scop) Place 1 Patch over 72 hours topically on the skin every 3 days. 2 Patch 12 11/03/2022 Active documented as of this encounter (statuses as of 02/08/2023) Active Problems Problem Noted Date Diagnosed Date Intractable migraine with aura without status mi grainosus 11/30/2021 Lymphadenopathy, submandibular 10/06/2021 Overview: Right chronic Iron deficiency anemia secon moni to inadequate dietary iron intake 10/06/2021 Vitamin D deficiency 10/06/2021 Other allergic rhinitis 11/08/2005 Overview: ICD-10 update of inactive term documented as of this encounter (statuses as of 02/08/2023) Resolved Problems Problem Noted Date Diagnosed Date Resolved Date Physical exam, routine 10/24/201810/24 Asthma with severity to be determined 07/30/2009 10/06/2021 Overview: Per Asthma Taxonomy ICD-10 update of inactive term EXTRINSIC ASTHMA, UNSPEC 11/08/2005 documented as of this encounter (statuses as of 02/08/2023) Immunizations Name Administration Dates Next Due H1N1 2009 Influenza, Intranasal 12/05/2008 HPV Vaccine, 9-Valent 02/13/2019,10/24/2018 IPV - Polio Virus Vaccine (Inact) 09/19/2013 Meningococcal Conjugate Vacc ine (Menactra/Menveo) 09/19/2013,09/25/2008 PPD 04/21/2017, 7,09/14/2015,09/06,12/17/2014 Pneumococcal Polysaccharide PPV23 (Pneumovax) 10/24/2018 Seasonal Influenza, PF, 6 M & above, IM , (FluLaval or Fluzone) 12/27/2022,12/23/2021 Seasonal Influenza, Quadriva lent, No Preserve, IM 11/12/2020,11/11/2019,11/19/2018,10/18,11/11/2015,11/18/2014 Seasonal Influenza, Split, I IV3, With Preserve, Inj 10/22/2013,11/15/2012,10/24/2011,11/17,11/13/2009,10/27/2008,11/09/2007 ,11/13/2006,11/21/2005 TDAP (age 10 and older)(Boostrix) 09/19/2013 TDAP (age 11 and older)(Adacel) 09/25/2008 Varicella Vaccine (Chicken Pox) 08/21/2008 documented as of this encounter Social History Tobacco Use Types Packs/Day Years Used Date Smoking Tobacco: Former Smokeless Tobacco: Never Alcohol Use Standard Drinks/Week Comments No 0 (1 standard drink = 0.6 oz pur e alcohol) PHQ-2 Answer Date Recorded PHQ-2 Score 0 10/24/2018 Hunger Vital Sign Answer Date Recorded Within the past 12 months, y ou worried that your food would run out before you got the money to buy more. Patient refused Within the past 12 months, t he food you bought just didn't last and you didn't have money to get more. Patient refused 06/2021 Sex and Gender Information Value Date Recorded Sex Assigned at Female 05/28/2021 12:25 PM EDT Gender Identity Female 05/28/2021 12:25 PM EDT Sexual Orientation Straight 05/28/2021 12 :25 PM EDT Job Start Date Occupation Industry Not on file Not on file Not on file documented as of this encounter Miscellaneous Notes * Telephone Encounter - Annmarie Salcido LPN - 02/08/2023 11:29 AM EST Has appt today * Telephone Encounter - Iveth Louis OSA - 02/07/2023 11:21 AM EST Pt is calling in stating that she was seen in the ED on 02/05/23 and needs a follow up for today. The soonest I could get her in would be 02/10/22. She states that she works for [employer] and needs to be seen sooner to be able to return and requested a message to be sent. Please advise documented in this encounter Plan of Treatment Upcoming Encounters Date Type Department Care Team (Late st Contact Info) Description 02/08/2023 3:20 PM EST Office Visit [address] [phone] Heather Catherine PA-C [address] [place] [address] [place] [address] 02/09/2023 4:40 PM EST Office Visit [address] [place] [phone] Don Sheth MD [address] [place] [address] [place] [address] 07/25/2023 1:50 PM EDT Office Visit [address] [place] [phone] Bibi Minor DO [address] [place] [address] [place] [address] Health Maintenance Due Date Last Done Comments COVID-19 Vaccine (#1) 03/26/1998 GARDASIL-HPV IMMUNIZATION SERIES (3 - 3-dose series) 05/08/2019 02/13/2019, 10/24/2018 Depression Screening 10/25/2019 10/24/2018 DTaP,Tdap,and Td Vaccines (8 - Td or Tdap) 09/20/2023 09/19/2013, 09/25/2008, 10/19/2001, Additional history exists Pap Smear 12/13/2024 12/13/2021, 02/13/2019 Hepatitis B Completed 10/24/1998, 03/09, 1997 MENINGOCOCCAL (MENACTRA/MENVEO) Completed 09/19/2013, 09/25/2008 Pneumococcal Vaccine: Pediatrics (0 to 5 Years) and At-Risk Patients (6 to 64 Years) Aged Out 10/24/2018 No longer eligible based on patient's age to complete this topic Gonorrhea / Chlamydia Screen Discontinued 04/26/2021, 02/19/2020, 10/24/2018, Additional history exists Influenza Vaccine (FLU shot) Completed 12/27/2022, 12/23/2021, 11/12/2020, Additional history exists documented as of this encounter Medical Devices Not on filedocumented as of this encounter
[2023-02-09] MEDS: FAMOTIDINE 20 MG in SYRINGE 3 ML IV SCH (08:44)
[2023-02-09] MEDS: ONDANSETRON INJ 2 MG/ML 2 ML VIAL IV PRN ×2 (08:50→19:58)
--- NOTE | 2023-02-09 09:36 | XRay Report ---
XR chest 2V PA/lateral HISTORY: 27 years-old Female pnemonia? per portable cxr acute shortness of breath COMPARISON: February 08, 2023 TECHNIQUE: PA and lateral views of the chest FINDINGS: Clinical history silhouette within normal limits. No pneumothorax, pleural effusion or airspace conso lidation. The bones appear normal. IMPRESSION: Normal exam. The previously questioned left basilar opacity may have been secondary to beasley mmation density. ACT 112: Negative or not required by law. The above report was generated using voice recognition software. It may contain grammatical, syntax o r spelling errors. Electronically signed by: Ryan Olmstead M.D. 02/09/2023 9:34 AM
[2023-02-09] MEDS: MAGNESIUM SULFATE / D5W 1 GM/100 ML BAG IV SCH ×3 (09:50→13:45)
--- OUTSIDE RECORDS SUMMARY | 2023-02-09 10:32 | External Medical Summary ---
Author Name Unknown Address Unknown Organization [id number][place] [place] [address] [place] [address] Laboratory Report Ordering Provider Test Date Status LEE ANN,KOELIN 02/08/2023 15:27:38 Final Observation Date Value Abnormality Reference (Units ) Status BUN 02/08/2023 15:27:38 12 6-20 (mg/dL) Final Creatinine 02/08/2023 15:27:38 0.8 0.5-1.0 (mg/dL) Final Glomerular filtration rate/1.73 sq M.predicted [Volume Rate/Area] in Serum, Plasma or Blood by Creatinine-based formula (CKD-EPI) 02/08/2023 15:27:38 >90 >=60 (mL/min) Final eGFR is calculated based on the CKD-EPI 2020 equation SODIUM 02/08/2023 15:27:38 137 135-146 (m mol/L) Final Potassium 02/08/2023 15:27:38 3.8 3.5-5.1 (m mol/L) Final Cl 02/08/2023 15:27:38 102 98-107 (mm ol/L) Final CO2 02/08/2023 15:27:38 18 Below low normal 22- 32 (mmol/L) Final Anion gap 02/08/2023 15:27:38 17 Above high normal 7- 15 (mmol/L) Final Glucose 02/08/2023 15:27:38 72 70-120 (mg /dL) Final Albumin 02/08/2023 15:27:38 4.3 3.8-5.0 (g /dL) Final AST (Aspartate aminotransferase) 02/08/2023 15:27:38 33 10-35 (U/L) Fin al Alk Phos 02/08/2023 15:27:38 74 35-130 (U/ L) Final Bilirubin, Total 02/08/2023 15:27:38 1.1 <=1 .2 (mg/dL) Final Calcium 02/08/2023 15:27:38 9.5 8.4-10.2 ( mg/dL) Final Protein 02/08/2023 15:27:38 7.2 6.0-8.3 (g /dL) Final ALT (Alanine aminotransferase) 02/08/2023 15:27:38 45 Above high normal 10-35 (U/L) Final Performing Location [facility] [place] [facility] [address] [facility] [place] [address]
--- OUTSIDE RECORDS SUMMARY | 2023-02-09 10:32 | External Medical Summary ---
Author Name Unknown Address Unknown Organization K01:[facility] [place] [address] [facility] [address] [place] [address] Laboratory Report Ordering Provider Test Date Status CINDY NANCE 02/08/2023 15:27:38 Final Observation Date Value Abnormality Reference (Units ) Status SYNC LEUKOCYTES IN BLOOD BY AUTOMATED COUNT 02/08/2023 15:27:38 7.48 4.00-10.80 (K/uL) Final Segs 02/08/2023 15:27:38 61.3 40.0-75.0 (%) Final Lymphs % 02/08/2023 15:27:38 29.0 18.0-42.0 (%) Final Monos 02/08/2023 15:27:38 6.7 1.0-11.0 (%) Final Eosinophils 02/08/2023 15:27:38 2.0 0.0-6.0 (%) Final Basos 02/08/2023 15:27:38 0.7 0.0-2.0 (%) Final Immature Granulocyte, Percent 02/08/2023 15:27:38 0.3 0.0-2.0 (%) Final Absolute Segs 02/08/2023 15:27:38 4.59 1.80-7.70 (K/uL) Final Lymphs, absolute 02/08/2023 15:27:38 2.17 1.00-4.80 (K/ul) Final Monos, Abs 02/08/2023 15:27:38 0.50 0.00-1.10 (K/uL) Final Eos, Abs 02/08/2023 15:27:38 0.15 0.00-0.70 (K/uL) Final Basos, Abs 02/08/2023 15:27:38 0.05 0.00-0.20 (K/uL) Final Immature Granulocytes, Number 02/08/2023 15:27:38 0.02 0.00-0.20 (K/uL) Final Performing Location [facility] [place] [address] [facility] [address]
--- OUTSIDE RECORDS SUMMARY | 2023-02-09 10:32 | External Medical Summary | Summary of Care ---
Author Name Unknown Organization [facility] Address [address] [facility] [place] [address] Phone [phone] Care Team Providers Care Rail Signal Mechanic Name Role Phone Unavailable Primary Care Provider Unavailabl e Reason for Visit * Reason Comments Outpatient Testing Encounter Details Date Type Department Care Team (Late st Contact Info) Description 02/08/2023 3:40 PM EST Laboratory Laboratory [address] [place] [phone] [address] [place] [address] Abdominal pain, epigastric Allergies No known active allergiesdocumented as of [...] 3 days. 2 Patch 12 11/03/2022 Active Pantoprazole Sodium 20 MG Oral Tablet Delayed Release (Protonix) Take 1 Tablet by mouth in the morning. 30 minutes before the first meal of the day. Do not crush, split or chew the tablet. 30 Tablet 5 02/08/2023 Active documented as of this encounter (statuses [...] on file documented as of this encounter Plan of Treatment Upcoming Encounters Date Type Department Care Team (Late st Contact Info) Description 02/09/2023 4:40 PM EST Office Visit Family Medicine [address] [phone] Don Sheth MD [address] [place] [address] [place] [address] 02/15/2023 2:30 PM EST Imaging Radiology [facility] [facility], [address] [place] [address] 07/25/2023 1:50 PM EDT Office Visit Family Medicine [address] [place] [phone] [address] [place] [address] Pending Results Name Type Priority Associated Diagnoses Date /Time CBC WITH WBC DIFFERENTIAL AND ANEMIA REFLEX WORKUP Lab Routine Abdominal pain, epigastric 02/08/2023 3:27 PM EST COMPREHENSIVE METABOLIC PANEL Lab Routine Abdominal pain, epigastric 02/08/2023 3:27 PM EST LIPASE Lab Routine Abdominal pain, epigastric 02/08/2023 3:27 PM EST ANEMIA CBC Lab Routine Abdominal pain, epigastric 02/08/2023 3:27 PM EST DIFFERENTIAL, AUTOMATED Lab Routine Abdominal pain, epigastric 02/08/2023 3:27 PM EST ANEMIA REFLEX CHEMISTRY HOLD Lab Routine Abdominal pain, epigastric 02/08/2023 3:27 PM EST Health Maintenance Due Date Last Done Comments [...] Not on filedocumented as of this encounter Visit Diagnoses Diagnosis Abdominal pain, epigastric documented in this encounter
--- OUTSIDE RECORDS SUMMARY | 2023-02-09 10:32 | External Medical Summary ---
Author Name Unknown Address Unknown Organization K01:[facility] [place] [facility] [place] [address] Laboratory Report Ordering Provider Test Date Status FRIDA NANCEClinton 02/08/2023 15:27:38 Final Observation Date Value Abnormality Reference (Units ) Status WBC, Total 02/08/2023 15:27:38 7.48 4.00-10.8 0 (K/uL) Final RBC 02/08/2023 15:27:38 5.32 3.85-5.15 (M/uL) Final Hemoglobin 02/08/2023 15:27:38 16.1 Above high normal 1 2.0-15.3 (g/dL) Final Anemia reflex testing trigge rs on a HGB < 12.0 for Females and HGB < 13.0 for Males in accordance with the WHO Anemia Guidelines
Anemia reflex testing triggers on a HGB < 12.0 for Females and HGB < 13.0 for Males in accordance with the WHO Anemia Guidelines HCT 02/08/2023 15:27:38 46.3 Above hi gh normal 36.0-45.2 (%) Final MCV 02/08/2023 15:27:38 87.0 81.5-97.5 (fL) Final MCH 02/08/2023 15:27:38 30.3 27.0-34.0 (pg) Final MCHC 02/08/2023 15:27:38 34.8 32.0-36.0 (g/dL) Final RDW 02/08/2023 15:27:38 11.9 11.5-15.5 (%) Final Platelets 02/08/2023 15:27:38 246 140-400 (K /uL) Final MPV 02/08/2023 15:27:38 11.0 6.6-11.1 ( fL) Final Nucleated erythrocytes/100 leukocytes [Ratio] in Blood by Automated count 02/08/2023 15:27:38 0 <=0 (/100 WBCs) Final Performing Location [facility] [place] [address] [facility] [address]
--- OUTSIDE RECORDS SUMMARY | 2023-02-09 10:32 | External Medical Summary ---
Author Name Unknown Address Unknown Organization K01:[facility] [place] [address] [place] [address] Laboratory Report Ordering Provider Test Date Status CINDY NANCE 02/08/2023 15:27:38 Final Observation Date Value Abnormality Reference (Units ) Status Lipase 02/08/2023 15:27:38 28 13-60 (U/L ) Final Performing Location [facility] [place] [address] [place] [address]
--- OUTSIDE RECORDS SUMMARY | 2023-02-09 10:32 | External Medical Summary | Summary of Care ---
Author Name Unknown Organization [facility] Address [address] [facility] [place] [address] Phone [phone] Care Team Providers Care Auxiliary Engineer Name Role Phone Unavailable Primary Care Provider Unavailabl e Reason for Referral * Precert (Within 10 days (routine)) - Pending Review Specialty Diagnoses / Procedures Referred By Contac t Referred To Contact Radiology Diagnoses Abdominal pain, epigastric Procedures CT ABD/PELVIS W WO IV CONTRAST AND W ORAL CONT Heather Catherine PA-C [address] [place] [address] [place] [id number] Referral ID Status Reason Start Date Expiration Date V isits Requested Visits Authorized [id number] Pending Review 02/15/2023 999 999 Reason for Visit * Reason Comments Acute Encounter Details Date Type Department Care Team (Late st Contact Info) Description 02/08/2023 3:20 PM EST Office Visit Family Medicine [address] [place] [phone] Heather Catherine PA-C [address] [place] [address] [place] [address] Abdominal pain, epigastric* Allergies No known active allergiesdocumented as of [...] on file documented as of this encounter Last Filed Vital Signs Vital Sign Reading Time Taken Comments Blood Pressure 92/58 02/08/2023 3:12 PM EST Pulse 120 02/08/2023 3:12 PM EST Temperature 36.7 C (98 F) 02/08/2023 3:12 PM EST Respiratory Rate - - Oxygen Saturation 97% 02/08/2023 3:12 PM EST Inhaled Oxygen Concentration - - Weight 49 kg (108 lb) 02/08/2023 3:12 PM EST Height - - Body Mass Index 20.41 12/26/2022 12:00 PM EST documented in this encounter Progress Notes * Heather Catherine PA-C - 02/08/2023 3:15 PM EST Nursing Notes: Aurora Dover, SHANTAL 02/08/23 1512 Sign at exiting of workspace COVID + 01/29 [facility] 02/05- dehydration Severe stomach pain, nausea, can't eat or drink Pt here today for ER FU. Pt tested positive for covid 01/29. She ended up in [facility] on 02/05 with dehydration. She has stomach pain. She can't eat or drink anything. She has nausea, epigastric abdominal pain. Pt denies diarrhea, constipation, blood in stool, black stool. She did have some mucus in stool. We have no records from [facility]. She states that they did a cardiac work up - all ok. Chest xray was ok. Liver enzymes were elevated. She also states that her blood count was low. Pt denies chest pain, SOB. Her cough is still there. Review of patient's allergies indicates: No Known Allergies Current Outpatient Medications Medication Sig Dispense Refill LORATADINE 10 MG PO TABS Take by mouth . 30 Tab 3 Flintstones Multivitamin Oral Tablet Chewable Take by mouth 2 Tablets daily . Magnesium Oxide 400 (240 Mg) MG Oral Tablet Take 1 Tablet by mouth in the morning. Riboflavin 400 MG Oral Tablet Take 1 Tablet by mouth in the morning. Tretinoin 0.05 % External Cream (Retin-A) Apply to face/chest/back/shoulders at night instead of Differin as instructed 45 g 2 Clindamycin Phosphate 1 % External Solution Apply to face/chest/back/shoulders in morning as instructed 60 mL 2 Rizatriptan Benzoate 5 MG Oral Tablet Take 1 Tablet by mouth as needed for Migraine. May repeat in 2 hours if needed 10 Tablet 5 Scopolamine 1 MG/3DAYS Transdermal Patch 72 Hour (Transderm Scop) Place 1 Patch over 72 hours topically on the skin every 3 days. 2 Patch 12 No current facility-administered medications for this visit. Past Medical History: Diagnosis Date Asthma with severity to be determined 07/30/2009 Per Asthma Taxonomy ICD-10 update of inactive term Encounter for hepatitis C screening test for low risk patient 04/26/2021 negative Screening for HIV without presence of risk factors 04/26/2021 negative Social History Socioeconomic History Marital status: Spouse name: Not on file Number of children: Not on file Years of education: Not on file Highest education level: Not on file Occupational History Not on file Tobacco Use Smoking status: Former Smokeless tobacco: Never Vaping Use Vaping Use: Never used Substance and Sexual Activity Alcohol use: No Drug use: No Sexual activity: Yes Partners: Male Other Topics Concern Not on file Social History Narrative Not on file Social Determinants of Health Financial Resource Strain: Not on file Food Insecurity: Unknown (01/10/2022) Hunger Vital Sign Worried About Running Out of Food in the Last Year: Patient refused Ran Out of Food in the Last Year: Patient refused Transportation Needs: Not on file Physical Activity: Not on file Stress: Not on file Social Connections: Not on file Intimate Partner Violence: Not on file Housing Stability: Not on file O:Blood pressure 92/58, pulse 120, temperature 36.7 C (98 F), temperature source Tympanic, weight 49 kg (108 lb), SpO2 97%. GENERAL: alert, healthy, and no distress NECK: supple, no adenopathy, no bruits, thyroid normal size, non-tender, without nodularity EYES: conjunctiva are pink and non-injected, sclera clear HEART: regular rate & rhythm, no murmur, and no gallops LUNGS: chest symmetric with normal AP diameter, no chest deformities noted, no chest wall tenderness, lungs clear to auscultation ABDOMEN: abdomen soft, normal bowel sounds, and no masses or organomegaly. Epigastric tenderness. No rebound or guarding. . No CVA tenderness A:Abdominal pain, epigastric (Primary) - CBC WITH WBC DIFFERENTIAL AND ANEMIA REFLEX WORKUP; Future; Expected date: 02/08/2023 - COMPREHENSIVE METABOLIC PANEL; Future; Expected date: 02/08/2023 - CT ABD/PELVIS W WO IV CONTRAST AND W ORAL CONT; Future; Expected date: 02/15/2023 - LIPASE; Future; Expected date: 02/08/2023 - LYME DISEASE ANTIBODY SCREEN WITH REFLEX TO CONFIRMATION; Future; Expected date: 02/08/2023 - ANAPLASMA PHAGOCYTOPHILUM DNA, QL REAL-TIME PCR; Future; Expected date: 02/08/2023 Other orders - Pantoprazole Sodium 20 MG Oral Tablet Delayed Release (Protonix); Take 1 Tablet by mouth in the morning. 30 minutes before the first meal of the day. Do not crush, split or chew the tablet. Will check some labs. Start protonix. Will get CT of abdomen. Any questions/problems, please call. If anything changes, worsens, develops new sx, please call [facility]. If the pain worsens, please go to ER [facility]. Pt will need forms filled out for work. She has missed since 01/27. Follow Up: Return if symptoms worsen or fail to improve. Heather Catherine PA-C documented in this encounter Nursing Notes * Aurora Dover LPN - 02/08/2023 3:11 PM EST COVID + 01/29 [facility] 02/05- dehydration Severe stomach pain, nausea, can't eat or drink documented in this encounter Plan of Treatment Upcoming Encounters Date Type Department Care Team (Late st Contact Info) Description 02/09/2023 4:40 PM EST Office Visit [address] [place] [phone] Don Sheth MD [address] [place] [address] [place] [id number] 02/15/2023 2:30 PM EST Imaging Radiology [address], [address] [place] [address] 07/25/2023 1:50 PM EDT Office Visit Family Medicine [address] [place] [phone] [place] [address] Pending Results Name Type Priority Associated Diagnoses Date /Time CBC WITH WBC DIFFERENTIAL AND ANEMIA REFLEX WORKUP Lab Routine Abdominal pain, epigastric 02/08/2023 3:27 PM EST COMPREHENSIVE METABOLIC PANEL Lab Routine Abdominal pain, epigastric 02/08/2023 3:27 PM EST LIPASE Lab Routine Abdominal pain, epigastric 02/08/2023 3:27 PM EST Scheduled Orders Name Type Priority Associated Diagnoses Order Schedule CBC WITH WBC DIFFERENTIAL AND ANEMIA REFLEX WORKUP Lab Routine Abdominal pain, epigastric Expected: 02/08/2023 (Approximate), Expires: 02/09/2024 COMPREHENSIVE METABOLIC PANEL Lab Routine Abdominal pain, epigastric Expected: 02/08/2023 (Approximate), Expires: 02/08/2024 CT ABD/PELVIS W WO IV CONTRAST AND W ORAL CONT Medical Imaging Routine Abdominal pain, epigastric Expected: 02/15/2023, Expires: 03/11/2024 LIPASE Lab Routine Abdominal pain, epigastric Expected: 02/08/2023 (Approximate), Expires: 02/08/2024 LYME DISEASE ANTIBODY SCREEN WITH REFLEX TO CONFIRMATION Lab Routine Abdominal pain, epigastric Expected: 02/08/2023, Expires: 02/09/2024 ANAPLASMA PHAGOCYTOPHILUM DNA, QL REAL-TIME PCR Lab Routine Abdominal pain, epigastric Expected: 02/08/2023, Expires: 02/09/2024 Health Maintenance Due Date Last Done Comments [...] this encounter Visit Diagnoses Diagnosis Abdominal pain, epigastric- Primary documented in this encounter
[2023-02-09] MEDS: PROMETHAZINE HCL 12.5 MG in SODIUM CHLORIDE 0.9% 50 ML IV PRN (13:09)
--- NOTE | 2023-02-09 14:03 | Electrocardiogram Report ---
Test Reason : Blood Pressure : / mmHG Vent. Rate : 082 BPM Atrial Rate : 082 BPM P-R Int : 116 ms QRS Dur : 056 ms QT Int : 390 ms P-R-T Axes : 074 071 076 degrees QTc Int : 455 ms Normal sinus rhythm with sinus arrhythmia Normal ECG When compared with ECG of 05-FEB-2023 17:22, No significant change was found Confirmed by Mikey Eldridge ([id number]) on 02/09/2023 2:03:07 PM Referred By: REFERRED SELF Confirmed By:Mikey Eldridge
--- NOTE | 2023-02-09 15:07 | Hospitalist Progress Note ---
Date of Service February 09, 2023 Assessment & Plan (1) Nausea & vomiting: Plan: 27-year-old female with past medical history significant for allergic rhinitis, vitamin D deficiency, history of intractable migraine, iron deficiency anemia secondary to inadequate dietary iron intake, comes because of ongoing nausea and vomiting some chest discomfort and shortness of breath since several days. She says symptoms started after she was diagnosed with COVID in January 29, 2023. She was in the ER on barney of new year but she improved after IV fluids and DuoNebs and discharged home on albuterol inhaler. Patient still having persistent nausea and vomiting not able to take anything. Not eating. Albuterol inhaler is not working. Having abdominal pain. On and off chest discomfort and shortness of breath. Has some mild cough. Has some headache. Vision is okay. No runny nose or sore throat currently. Currently afebrile. Did not move her bowels for several days. Not micturating much. Hemodynamically stable. COVID-19 virus infection on January 29, 2023-likely the cause for her GI symptoms Nausea and vomiting Abdominal pain States ongoing since she was diagnosed COVID in January 29, 2023 Was in the ER on February 05, 2023 but improved with the fluids and DuoNebs Poor oral intake Will continue IV fluids, IV antiemetics as needed, IV morphine as needed for abdominal pain and IV Pepcid Symptoms have been improving If continues to have more symptoms will ask for GI evaluation Continues to have abdominal pain with nausea and vomiting Appreciate GI input and recommendation Will get ultrasound of the gallbladder to rule out any acute cholecystitis HIDA scan has been requested as well as per GI recommendation Severe electrolyte imbalance Has hypomagnesemia, hypophosphatemia and hyponatremia Will give supplement and monitor UTI UA suggestive of infection Possible cause of her symptoms Empiric Rocephin Preliminary culture has been negative We will continue antibiotic for at least 3 days Metabolic acidosis Anion gap Possibly from nausea vomiting and starvation D5 normal saline at rate of 125 mill per hour Will follow repeat labs and repeat ABG-acidosis has been improving Will repeat metabolic panel and electrolytes this afternoon again Chest pain and shortness of breath Will get chest x-ray PA and lateral view Initial EKG and troponin negative We will follow repeat EKG and troponins DuoNebs as needed for now Doubt any ACS DVT prophylaxis SCDs for now Disposition Med/tele Full code Admission and Anticipated Discharge Date Admission Date: February 09, 2023 Subjective 02/09/2023 The patient was seen and examined in the emergency room in presence of the family members She has been complaining of nausea, vomiting with shortness of breath for the last few days since she has had COVID 19 virus infection on 29 November Has not been able to eat or drink much and does not have any significant bowel movement Denies any urinary symptoms and does not have any fever and or chills 02/10/2023 The patient was seen and examined in medical telemetry unit She continues to have epigastric pain with nausea or vomiting Has not been tolerating any diet Denies any respiratory symptoms Review of Systems Review of Systems: All systems reviewed and are unremarkable except as noted below Physical Exam Physical Exam: Sitting on the bed with acute distress due to ongoing nausea and vomiting Constitutional: + ill appearing and + thin Eyes: PERRL, conjunctivae normal, anicteric sclerae ENMT: external ear and nose normal, oropharynx normal Neck: trachea midline, no thyromegaly Respiratory: no respiratory distress Auscultation: lungs clear to auscultation bilaterally Cardiovascular: Rate/Rhythm: regular rate and regular rhythm; not tachycardic Heart Sounds: normal S1 and normal S2; no murmur Extremities: no edema Gastrointestinal (Abdomen): Inspection/Auscultation: normal bowel sounds; abdomen not distended Percussion/Palpation: + abdomen tender (Mildly tender epigastrium) and abdomen soft Musculoskeletal: No acute arthritis involving any of the joint Neurologic: normal touch/pain/proprioception and moves all extremities; no focal motor deficits Psychiatric: A+Ox3, euthymic affect Lymphatic: no cervical or axillary lymphadenopathy Results & Data Results & Data Vital Signs (Past 12 Hours) Vital Signs Temp Pulse Pulse Resp BP BP Pulse Ox 02/09/23 14:54 36.6 C 68 16 119/83 97 02/09/23 14:19 74 20 124/70 97 02/09/23 10:13 67 20 112/64 97 02/09/23 08:30 71 02/09/23 06:54 87 18 122/79 100 02/09/23 06:15 68 02/09/23 05:26 02/09/23 05:06 82 20 108/76 98 02/09/23 03:00 72 18 108/77 96 Pulse Ox O2 Del Method O2 Del Method 02/09/23 14:54 Room Air 02/09/23 14:19 Room Air 02/09/23 10:13 Room Air 02/09/23 08:30 02/09/23 06:54 02/09/23 06:15 02/09/23 05:26 98 Room Air 02/09/23 05:06 Room Air 02/09/23 03:00 Room Air Laboratory Results Short CBC 02/08/23 02/09/23 Range/Units 19:45 06:57 WBC 9.03 8.46 (4.8-10.8) K/ul Hgb 16.7 H 13.7 D (12.0-16.0) g/dl Hct 45.4 37.4 (37.0-47.0) % Plt Count 240 197 (130-400) K/uL [facility] 02/08/23 02/09/23 19:45 06:57 Sodium 138 132 L Potassium 4.1 3.8 Chloride 104 103 Carbon Dioxide 17 L 17 L BUN 13 7 Creatinine 0.73 0.68 Glucose 73 148 H Calcium 10.0 7.4 L D Liver Function 02/08/23 Range/Units 19:45 Total Bilirubin 1.2 H (0.2-1.0) mg/dl AST 30 (13-39) U/L ALT 38 (7-52) U/L Alkaline Phosphatase 68 (34-104) U/L Albumin 4.4 (3.4-5.0) gm/dl Urine 02/08/23 Range/Units 20:07 Urine Color Bremer Urine Appearance Turbid A (Clear) Urine pH 5.5 (4.5-7.5) Ur Specific Erwin 1.031 H (1.000-1.030) Urine Protein 1+ H (Negative) Urine Glucose (UA) Negative (Negative) Short CBC 02/10/23 Range/Units 09:20 WBC 10.37 (4.8-10.8) K/ul Hgb 15.2 (12.0-16.0) g/dl Hct 40.2 (37.0-47.0) % Plt Count 263 (130-400) K/uL [facility] 02/09/23 02/10/23 15:10 09:20 Sodium 129 L 123 L Potassium 3.3 L 3.3 L Chloride 98 90 L Carbon Dioxide 21 25 BUN 4 L 2 L Creatinine 0.62 0.51 L Glucose 166 H 137 H Calcium 7.7 L 8.0 L Liver Function 02/10/23 Range/Units 09:20 Total Bilirubin 1.1 H (0.2-1.0) mg/dl AST 26 (13-39) U/L ALT 32 (7-52) U/L Alkaline Phosphatase 59 (34-104) U/L Albumin 3.9 (3.4-5.0) gm/dl Medications Administered Current Inpatient Medications Current Inpatient Medications Dextrose/Sodium Chloride (D5w And 1/2nss) 1,000 mls @ 125 mls/hr IV .Q8H [facility] Stop: 03/11/23 02:29 Last Admin: 02/10/23 11:52 Dose: 125 mls/hr Famotidine 20 mg/ Syringe 5 mls @ 2.5 mls/min IV DAILY [facility] Stop: 03/11/23 08:59 Last Admin: 02/10/23 08:06 Dose: 2.5 mls/min Ceftriaxone Sodium 2,000 mg/ (Dextrose) 50 mls @ 100 mls/hr IV Q24H [facility]; Protocol Stop: 02/19/23 20:59 Last Infusion: 02/09/23 23:01 Dose: Infused Promethazine HCl 12.5 mg/ (Sodium Chloride) 50.5 mls @ 202 mls/hr IV Q6H PRN PRN Reason: Nausea And Vomiting Stop: 03/11/23 11:44 Last Infusion: 02/10/23 10:22 Dose: Infused Acetaminophen (Ofirmev) 1,000 mg in 100 mls @ 400 mls/hr IV Q8H PRN PRN Reason: Pain Stop: 02/13/23 10:25 Magnesium Sulfate/Dextrose (Magnesium Sulfate / D5w) 1 gm in 100 mls @ 50 mls/hr IV Q2H [facility] Stop: 02/10/23 15:44 Last Admin: 02/10/23 12:11 Dose: 50 mls/hr Potassium Phosphate 30 mmol/ (Sodium Chloride) 510 mls @ 88 mls/hr IV ONE ONE Stop: 02/10/23 17:32 Last Admin: 02/10/23 13:00 Dose: 88 mls/hr Morphine Sulfate (Morphine Sulfate 4 Mg/Ml 1 Ml Carp\Vial) 3 mg IV Q4H PRN PRN Reason: Pain Stop: 02/23/23 05:25 Last Admin: 02/10/23 11:52 Dose: 3 mg Nitroglycerin (Nitroglycerin Sl 0.4 Mg/Tab Tab) 0.4 mg SL Q5M PRN PRN Reason: Chest Pain Stop: 03/11/23 05:25 Ondansetron HCl (Ondansetron Inj 2 Mg/Ml 2 Ml Vial) 4 mg IV Q6H PRN PRN Reason: Nausea Stop: 03/11/23 05:25 Last Admin: 02/10/23 02:37 Dose: 4 mg (1) Nausea & vomiting Vomiting type: unspecified Qualified Code(s): R11.2 - Nausea with vomiting, unspecified
[2023-02-09 15:54] LABS: BUN Creatinine Ratio 6.5 (10-20); Calcium 7.7 mg/dl (8.6-10.3); Creatinine Clr Calc Pharmacy 99.6 ml/min; Est GFR (African American) 145.3 ml/min; Est GFR (Non-African American) 125.3 ml/min; Magnesium 2.1 mg/dl (1.7-2.4); Phosphorus 1.4 mg/dl (2.5-4.9); Potassium 3.3 mmol/L (3.5-5.1)
[2023-02-09] MEDS ORDERED: POTASSIUM PHOS 3 MMOL/1 ML INFUSION IV STA (16:00)
[2023-02-09] MEDS ORDERED: POTASSIUM PHOSPHATE 30 MMOL in SODIUM CHLORIDE 0.9% 500 ML IV ONE (16:15)
[2023-02-09] MEDS ORDERED: cefTRIAXone SODIUM 2,000 MG in DEXTROSE 5 % MINI-B 50 ML IV SCH (21:00)
[2023-02-09] MEDS ORDERED: METOCLOPRAMIDE HCL INJ 5 MG/ML 2 ML VIAL IV ONE (21:11)
[2023-02-09] MEDS ORDERED: MoRPHine SULFATE 2 MG/ML CARP IV STA (21:12)
[2023-02-10] MEDS: MoRPHine SULFATE 4 MG/ML 1 ML CARP\\VIAL IV PRN ×7 (00:56→23:20)
[2023-02-10] MEDS ORDERED: MoRPHine SULFATE 2 MG/ML CARP IV STA (02:24)
[2023-02-10] MEDS: ONDANSETRON INJ 2 MG/ML 2 ML VIAL IV PRN ×2 (02:37→15:15)
[2023-02-10] MEDS ORDERED: OPTIRAY 320 125ml IV ONE (03:03)
[2023-02-10] MEDS: D5W AND 1/2NSS 1,000 ML IV SCH ×2 (05:08→11:52)
--- NOTE | 2023-02-10 06:19 | CT Scan Report ---
Exam(s): CTA ABDOMEN + PELVIS With Contrast IV Amt: 117 cc opti 320 EXAM: CT Angiography Abdomen and Pelvis With Intravenous Contrast CLINICAL HISTORY: Reason for exam: persisitent severe abdominal pain. TECHNIQUE: Axial computed tomographic angiography images of the abdomen and pelvis with intravenous contrast. Automated exposure control was utilized for the study. A dose lowering technique was utilized adhering to the principles of ALARA. MIP reconstructed images were created and reviewed. CONTRAST: Patient received 117 cc opti 320 of IV contrast COMPARISON: No relevant prior studies available. FINDINGS: VASCULATURE: Aorta: No acute findings. No abdominal aortic aneurysm. No dissection. Celiac trunk and mesenteric arteries: No acute findings. No occlusion or significant stenosis. Renal arteries: No acute findings. No occlusion or significant stenosis. Iliac arteries: No acute findings. No occlusion or significant stenosis. Lung bases: Unremarkable. No mass. No consolidation. ABDOMEN: Liver: Unremarkable. No mass. Gallbladder and bile ducts: Prominent, though not enlarged, gallbladder measuring 8.0 cm in length and 3.1 cm in diameter. No evidence of adjacent inflammatory change. Findings may be due to prandial state. If there is further concern for cholecystitis, consider HIDA imaging. Pancreas: Unremarkable. No ductal dilation. No mass. Spleen: Unremarkable. No splenomegaly. Adrenals: Unremarkable. No mass. Kidneys and ureters: Unremarkable. No hydronephrosis. No solid mass. Stomach and bowel: Diffuse annular thickening noted of the colon with relative sparing of the sigmoid colon and rectum. Findings may relate to underdistention. Colitis is also possible. No evidence of bowel obstruction. PELVIS: Appendix: Normal appendix. Bladder: Unremarkable. No mass. Reproductive: Unremarkable as visualized. ABDOMEN and PELVIS: Intraperitoneal space: Moderate pelvic free fluid which may be physiologic or reactive in nature. No free air. Bones/joints: No acute fracture. No dislocation. Soft tissues: Umbilical hernia containing fat. Lymph nodes: Unremarkable. No enlarged lymph nodes. IMPRESSION: 1. Prominent, though not enlarged, gallbladder measuring 8.0 cm in length and 3.1 cm in diameter. No evidence of adjacent inflammatory change. Findings may be due to prandial state. If there is further concern for cholecystitis, consider HIDA imaging. 2. Diffuse annular thickening noted of the colon with relative sparing of the sigmoid colon and rectum. Findings may relate to underdistention. Colitis is also possible. 3. Moderate pelvic free fluid which may be physiologic or reactive in nature. 4. No other acute findings. 5. Incidental findings as described. Electronically signed by: Aleksandr Wiggins MD 02/10/23 06:18 AM
[2023-02-10] MEDS ORDERED: KETOROLAC TROMETHAMINE 15 MG/ML VIAL IV ONE (07:49)
[2023-02-10] MEDS: PROMETHAZINE HCL 12.5 MG in SODIUM CHLORIDE 0.9% 50 ML IV PRN (08:05)
[2023-02-10] MEDS: FAMOTIDINE 20 MG in SYRINGE 3 ML IV SCH (08:06)
--- NOTE | 2023-02-10 09:08 | Gastrointestinal Consultation ---
Date of Consultation February 10, 2023 Assessment & Plan (1) Abdominal pain: 27 year old female without past medical history admitted with COVID-19 w/ reports of abd pain, nausea/vomiting and inability to tolerate oral intake since onset of COVID-19 symptoms, LFTS, lipase are non-elevated CTA showing ?colitis but no report of diarrhea and ?of GB prominence without any evidence of stones or inflammatory changes - No acute indication for EGD/Colonoscpy given her COVID-19 infection status - Will plan for OP EGD/Colon - Given ?colitis on imaging, if she develops diarrhea, please check stool culture and c.diff - Given ?gb prominence, ongoing upper GI symptoms, please arrange HIDA scan - Scheduled IV PPI BID - Agree w/ scheduled antiemetics - May try a course of PO liquid carafate slurry - Please recall GI as needed. Thank you for allowing us to participate in the care of this patient. Please call with any acute changes, questions or concerns. Please see addendum below with additional recommendation from my supervising physician. Supervising Physician Co-Signing Physician Notes I evaluated the patient with TAMY Sibley and agree with her findings and plan of care on 02/10/2023. 27 y/o F admitted with abdominal pain, N/V found to be + for COVID though patient reports she has been positive since . LFTs and lipase normal. CT scan notable for some ? mild colitis but patient is not having any diarrhea. There was also mention of a distended gallbladder for which a gallbladder US was completed today concerning for early acute cholecystitis. Would recommend outpatient EGD/colonoscopy for her symptoms once COVID resolves if her symptoms persist. Supportive care while in the hospital. PPI 40 mg BID. If she develops diarrhea recommending checking stool studies. Would recommend general surgery consult for cholecystitis that was reported on gallbladder ultrasound today as that could be causing her symptoms as well. Alexa Martin, DO Gastroenterology and Hepatology History of Present Illness Reason for Consultation: nausea/vomiting Requesting Physician: Lei Attending Physician: Trinidad Odom MD History of Present Illness 27 year old female without PMH who is admitted with severe abd pain, nausea/vomiting and inability to tolerate PO intake - GI asked to evaluate. She notes she started with her symptoms including respiratory symptoms on . She took a Covid-19 test, tested positive. Her respiratory symptoms improved, however, her GI symptoms persisted. She notes fairly nonspecific, sharp, upper abd pain. Constant. When she tries to eat, this results in nausea/vomiting. Emesis has been liquid/bile. No black or bloody emesis. Denies reflux/regurgitation. No diarrhea/constipation. Denies black or bloody stools. + COVID-19 CTA: Prominent, though not enlarged, gallbladder measuring 8.0 cm in length and 3.1 cm in diameter. No evidence of adjacent inflammatory change. Findings may be due to prandial state. If there is further concern for cholecystitis, consider HIDA imaging. 2. Diffuse annular thickening noted of the colon with relative sparing of the sigmoid colon and rectum. Findings may relate to underdistention. Colitis is also possible. 3. Moderate pelvic free fluid which may be physiologic or reactive in nature. 4. No other acute findings. 5. Incidental findings as described. CTAP: Trace free fluid in the pelvis is nonspecific. Otherwise, no acute finding. EGD: none Colonoscopy: none Allergies Allergy/AdvReac Type Severity Reaction Status Date / Time Pollen Allergy Intermediate Sneezing Uncoded 02/05/23 17:23 Home Medications Medication Instructions Recorded Confirmed Type ondansetron 4 mg disintegrating 4 mg PO Q6H PRN nausea and 02/05/23 02/08/23 Rx tablet vomiting #15 tabs pantoprazole 20 mg tablet,delayed 20 mg PO DAILY 02/08/23 02/08/23 History release rizatriptan 5 mg tablet 5 mg PO UD PRN Migraine Headache 02/08/23 02/08/23 History Patient History Medical History (Updated 02/09/23 @ 01:45 by Burke Morrow DO) Palpitations Fatigue Dyspnea on exertion Chest pain Cervical lymphadenopathy Anxiety Family History (Updated 08/13/18 @ 16:31 by Jerel Grijalva) Mother Anxiety Hypertension Grandmother (Maternal) , 57 Brain cancer Grandfather (Paternal) Diabetes Kidney disease Denies family history of Ovarian cancer Prostate cancer Myocardial infarction Breast cancer Colorectal cancer Social History (Updated 08/13/18 @ 16:33 by Jerel Grijalva) Smoking Status: Current some day smoker Tobacco Type: E-cigarettes / Vaping packs per day: 0.5; Hx Alcohol Use: No Hx Substance Use: No Preferred Language: Khmer Communication Ability: Effective Visual Impairment: No Limitations Hearing Ability: Normal Cardiograph Operator Required: No Beliefs That Will Affect Care: None marital status: Single marital status details: ORAL CONTRACEPTIVE USE Current Living Situation: Alone Current Living Situation Comment: LIVES WITH [facility] current occupational status: employed 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 Feels Safe at Home: Yes Dental Care, Regularly: Yes Physical Activity Frequency: Does not Exercise Assistive Devices: None Review of Systems Review of Systems: All systems reviewed & are unremarkable except as noted in HPI & below Physical Exam Constitutional: WD/WN, vitals as above Respiratory: normal respiratory effort; no respiratory distress and no labored breathing Cardiovascular: Rate/Rhythm: regular rate Gastrointestinal (Abdomen): Percussion/Palpation: + abdomen tender and abdomen soft; no guarding and abdomen not rigid Skin: no rashes, warm and dry Results & Data Vital Signs (Past 12 Hours) Vital Signs Temp Pulse Pulse Resp BP Pulse Ox O2 Del Method 02/10/23 07:48 76 02/10/23 03:19 36.8 C 65 18 127/83 98 Room Air 02/09/23 23:20 36.9 C 67 16 122/81 99 Room Air Laboratory Results 02/09/23 02/09/23 Range/Units 21:29 15:10 Sodium 129 L (136-145) mmol/L Potassium 3.3 L (3.5-5.1) mmol/L Chloride 98 (98-107) mmol/L Carbon Dioxide 21 (21-32) mmol/L Anion Gap 10 (3-11) BUN 4 L (6-23) mg/dl Creatinine 0.62 (0.6-1.2) mg/dl Est Cr Clr Drug Dosing 99.6 ml/min Est GFR ( Amer) 145.3 ml/min Est GFR (Non-Af Amer) 125.3 ml/min BUN/Creatinine Ratio 6.5 L (10-20) Glucose 166 H (70-99(Fasting)) mg/dl Lactate 1.0 (0.4-2.0) mmol/L Calcium 7.7 L (8.6-10.3) mg/dl Phosphorus 1.4 L* D (2.5-4.9) mg/dl Magnesium 2.1 (1.7-2.4) mg/dl (1) Abdominal pain Abdominal location: unspecified location Qualified Code(s): R10.9 - Unspecified abdominal pain
[2023-02-10 10:08] LABS: Alanine Aminotransferase 32 U/L (7-52); Albumin Globulin Ratio 1.3 (0.9-2); Albumin Level 3.9 gm/dl (3.4-5.0); Alkaline Phosphatase 59 U/L (34-104); Anion Gap 8 (3-11); Aspartate Aminotransferase 26 U/L (13-39); BUN Creatinine Ratio 3.9 (10-20); Bilirubin,Total 1.1 mg/dl (0.2-1.0); Blood Urea Nitrogen 2 mg/dl (6-23); Carbon Dioxide 25 mmol/L (21-32); Chloride 90 mmol/L (98-107); Creatinine Clr Calc Pharmacy 121.1 ml/min; Est GFR (African American) > 150.0 ml/min; Est GFR (Non-African American) 133.6 ml/min; Globulin 3.1 gm/dl (2.5-4.0); Glucose 137 mg/dl (70-99(Fasting)); Magnesium 1.3 mg/dl (1.7-2.4); Phosphorus 2.2 mg/dl (2.5-4.9); Potassium 3.3 mmol/L (3.5-5.1); Sodium 123 mmol/L (136-145)
[2023-02-10 10:36] LABS: Hematocrit (blood only) 40.2 % (37.0-47.0); Hemoglobin 15.2 g/dl (12.0-16.0); Mean Corpuscular Hemoglobin 30.4 pg (25.0-34.0); Mean Corpuscular Hgb Conc 37.8 g/dL (32.0-36.0); Mean Corpuscular Volume 80.4 fL (80.0-100.0); Mean Platelet Volume 10.6 fL (9.4-12.4); Platelet Count 263 K/uL (130-400); RDW Coefficient of Variation 11.6 % (11.5-14.5); RDW Standard Deviation 33.6 fL (36.4-46.3); White Blood Count 10.37 K/ul (4.8-10.8)
[2023-02-10 10:37] LABS: Basophils # (auto) 0.03 K/uL (0.00-0.20); Basophils % (auto) 0.3 %; Eosinophils # (auto) 0.15 K/uL (0.00-0.50); Eosinophils % (auto) 1.4 %; Immature Granulocytes # (auto) 0.06 K/uL (0.01-0.20); Immature Granulocytes % (auto) 0.6 %; Lymphocytes # (auto) 1.79 K/uL (1.20-3.40); Lymphocytes % (auto) 17.3 %; Monocytes # (auto) 0.93 K/uL (0.11-0.59); Neutrophils # (auto) 7.41 K/uL (1.40-6.50); Neutrophils % (auto) 71.4 %
[2023-02-10] MEDS ORDERED: POTASSIUM PHOS 3 MMOL/1 ML INFUSION IV STA (11:34)
[2023-02-10] MEDS ORDERED: POTASSIUM PHOSPHATE 30 MMOL in SODIUM CHLORIDE 0.9% 500 ML IV ONE (11:45)
[2023-02-10] MEDS: MAGNESIUM SULFATE / D5W 1 GM/100 ML BAG IV SCH ×2 (12:11→15:14)
--- NOTE | 2023-02-10 14:19 | Ultrasound Report ---
ABDOMINAL ULTRASOUND, RIGHT UPPER QUADRANT HISTORY: Distended gallbladder from prior CT. Follow-up. r/o cholecystitis. COMPARISON: Abdomen and pelvis CT 02/10/2023. FINDINGS: Pancreas: The pancreas demonstrates a normal echotexture. Liver: Unremarkable. Gallbladder: Borderline thickening of the gallbladder wall adjacent to the hepatic surface measuring up to 3 mm. Gallbladder sludge is noted. No gallstones identified. The gallbladder remains mildly dis tended. There is trace pericholecystic fluid suggested between the gallbladder liver. The technologis t reported a positive sonographic Haynes sign. CBD: 4 mm. Right kidney: No hydronephrosis. IMPRESSION: 1. Borderline thickened gallbladder wall with trace pericholecystic fluid along the hepatic surface. There is associated gallbladder sludge without gallstones. The technologist reported a positive sonog raphic Haynes sign. Therefore, these findings could be seen in the setting of an early acute cholecys titis or underlying hepatic pathology. Confirmation with nuclear medicine HIDA scan recommended. 2. Normal caliber common bile duct. ACT 112: Negative or not required by law. Electronically signed by: Lui Anderson M.D. 02/10/2023 2:17 PM
--- NOTE | 2023-02-10 15:42 | Electrocardiogram Report ---
Test Reason : Blood Pressure : / mmHG Vent. Rate : 066 BPM Atrial Rate : 066 BPM P-R Int : 110 ms QRS Dur : 076 ms QT Int : 448 ms P-R-T Axes : 064 068 067 degrees QTc Int : 469 ms Sinus rhythm with short NH Otherwise normal ECG When compared with ECG of 08-FEB-2023 19:42, No significant change was found Confirmed by Mikey Eldridge ([id number]) on 02/10/2023 3:42:11 PM Referred By: REFERRED SELF Confirmed By:Mikey Eldridge
[2023-02-10 16:20] LABS: Anion Gap 10 (3-11); BUN Creatinine Ratio 4.1 (10-20); Blood Urea Nitrogen 2 mg/dl (6-23); Calcium 7.8 mg/dl (8.6-10.3); Carbon Dioxide 26 mmol/L (21-32); Chloride 87 mmol/L (98-107); Creatinine Clr Calc Pharmacy 126.1 ml/min; Est GFR (African American) > 150.0 ml/min; Est GFR (Non-African American) 135.4 ml/min; Glucose 116 mg/dl (70-99(Fasting)); Potassium 3.6 mmol/L (3.5-5.1); Sodium 123 mmol/L (136-145)
[2023-02-10 16:21] LABS: Magnesium 2.2 mg/dl (1.7-2.4); Phosphorus 3.9 mg/dl (2.5-4.9)
[2023-02-10] MEDS ORDERED: PROMETHAZINE HCL 25 MG in SODIUM CHLORIDE 0.9% 50 ML IV PRN (16:45)
--- NOTE | 2023-02-10 17:24 | Surgery Consultation ---
Date of Consultation February 10, 2023 Assessment & Plan (1) Abdominal pain: (2) COVID-19: Plan F/u HIDA scan Some people with COVID may present with GI upset and a variety of small atypical findings on imaging. Recommend following up on the previously recommended HIDA scan to better tell if the GB is acutely effected as she has other factors that may be contributing to her symptoms. Would also consider increasing her antacid ppx against gastritis as well. Will f/u in the am. History of Present Illness Reason for Consultation: rule out cholecystitis Requesting Physician: Trinidad Odom MD Attending Physician: Dr. Weston History of Present Illness 27-year-old female with past medical history significant for allergic rhinitis, vitamin D deficiency, history of intractable migraine, iron deficiency anemia secondary to inadequate dietary iron intake, comes because of ongoing nausea and vomiting some chest discomfort and shortness of breath since several days. She says symptoms started after she was diagnosed with COVID in January 29, 2023. She was in the ER on barney of the new year but she improved after IV fluids and DuoNebs and discharged home on albuterol inhaler. She returned on 02/08/23 still having persistent nausea and vomiting not able to take anything. Not eating. Albuterol inhaler is not working. Having abdominal pain. On and off chest discomfort and shortness of breath. Has some mild cough. CT A/P done on 02/08 did not show an etiology for these symptoms. Currently afebrile. Did not move her bowels for several days. Hemodynamically stable. A repeat CT at early this am mentioned enlarged GB without inflammatory change but if concerned about cholecystitis, obtain HIDA. Previously a small amount of fluid in the pelvis on 02/08/23 CT now appeared moderate. Still with evidence for colitis from the ascending to descending colon and no acute or infectious GB findings. The medical team then ordered a RUQ US which mentions pericholecystic fluid and some borderline GB wall thickening on the side of the GB that meets the edge of the liver. The patient admits to ongoing primarily epigastric abdominal pain, nausea and vomiting. States she vomits dark, slimy fluid. Has not really had BMs but last one was dark to almost black. Denies diarrhea. She explains that the last time she had COVID, she had similar symptoms with GI irritation and upset but that went away and this time her symptoms are lasting much longer. She denies any prior GB issues or questionable concerns. Allergies Allergy/AdvReac Type Severity Reaction Status Date / Time Pollen Allergy Intermediate Sneezing Uncoded 02/05/23 17:23 Home Medications Medication Instructions Recorded Confirmed Type ondansetron 4 mg disintegrating 4 mg PO Q6H PRN nausea and 02/05/23 02/08/23 Rx tablet vomiting #15 tabs pantoprazole 20 mg tablet,delayed 20 mg PO DAILY 02/08/23 02/08/23 History release rizatriptan 5 mg tablet 5 mg PO UD PRN Migraine Headache 02/08/23 02/08/23 History Patient History Medical History (Updated 02/09/23 @ 01:45 by Burke Morrow DO) Palpitations Fatigue Dyspnea on exertion Chest pain Cervical lymphadenopathy Anxiety Family History (Updated 08/13/18 @ 16:31 by Jerel Grijlava) Mother Anxiety Hypertension Grandmother (Maternal) , 57 Brain cancer Grandfather (Paternal) Diabetes Kidney disease Denies family history of Ovarian cancer Prostate cancer Myocardial infarction Breast cancer Colorectal cancer Social History (Updated 08/13/18 @ 16:33 by Jerel Grijalva) Smoking Status: Current some day smoker Tobacco Type: E-cigarettes / Vaping packs per day: 0.5; Hx Alcohol Use: No Hx Substance Use: No Preferred Language: American Communication Ability: Effective Visual Impairment: No Limitations Hearing Ability: Normal Ax Survey Worker Required: No Beliefs That Will Affect Care: None marital status: Single marital status details: ORAL CONTRACEPTIVE USE Current Living Situation: Alone Current Living Situation Comment: LIVES WITH [facility] current occupational status: employed current occupation: [employer] Feels Safe at Home: Yes Dental Care, Regularly: Yes Physical Activity Frequency: Does not Exercise Assistive Devices: None Review of Systems Review of Systems: as stated above Physical Exam Constitutional: + ill appearing (appears tired, exhauste d) and + thin; + not healthy appearing, not in distress and not diaphoretic Respiratory: normal respiratory effort; no respiratory distress, no labored breathing and does not use accessory muscles Gastrointestinal (Abdomen): abdomen is non-distended TTP all over without peritonitis. voluntary guarding is present Psychiatric: Orientation: alert, oriented to place and cooperative; not guarded Results & Data Vital Signs (Past 12 Hours) Vital Signs Temp Pulse Pulse Resp BP Pulse Ox O2 Del Method 02/10/23 15:00 82 02/10/23 15:00 36.5 C 79 18 128/87 97 Room Air 02/10/23 11:23 36.3 C L 71 18 117/79 100 Room Air 02/10/23 07:48 76 02/10/23 07:16 36.5 C 72 18 121/81 98 Room Air PG Care Time/CCT Total # of Minutes Spent Total Time Spent with Patient: Total time spent is greater than 50% in coordination of care (as documented) at patient's floor/unit and/or counseling patient: [place] [address] IN/OBS CONSULT LVL 2,35M Patient Type New History Detailed Exam Detailed Medical Decision Making Moderate Complexity Diagnoses Abdominal pain R10.9 Abdominal location: unspecified location COVID-19 U07.1 (1) Abdominal pain Abdominal location: unspecified location Qualified Code(s): R10.9 - Unspecified abdominal pain
[2023-02-10] MEDS ORDERED: PIPER/TAZO 4.5g in D5W MINI-B 100 ML IV ONE (17:30)
[2023-02-10] MEDS: ACETAMINOPHEN 1,000 MG/100 ML VIAL IV PRN (17:43)
[2023-02-10] MEDS: D5W AND NSS 1,000 ML IV SCH (17:44)
[2023-02-10] MEDS: PIPERACILLIN/TAZOBACTAM 4.5 GM in DEXTROSE 5% MINI-B 100 ML IV SCH (23:20)
[2023-02-11] MEDS: D5W AND NSS 1,000 ML IV SCH ×2 (02:09→15:51)
[2023-02-11] MEDS: ONDANSETRON INJ 2 MG/ML 2 ML VIAL IV PRN ×2 (03:24→11:19)
[2023-02-11] MEDS: MoRPHine SULFATE 4 MG/ML 1 ML CARP\\VIAL IV PRN ×4 (03:24→15:20)
--- NOTE | 2023-02-11 08:28 | Surgery Progress Note ---
Date of Service February 11, 2023 Assessment & Plan (1) Abdominal pain: (2) Nausea & vomiting: Plan: Epigastric pain could be worsened due to ongoing vomiting. HD stable, afebrile. Denies any further BM, stool studies ordered. Consider administration of IV antiemetic prior to pain medication. Try Dilaudid instead of Morphine. Or may try oral pain medication in the form of Percocet if the patient is able to tolerate PO. Recommend more aggressive GI ppx with a PPI BID, patient currently on an H2 zonia. Try Carafate if patient can tolerate. May consider an antispasmodic. Warm compress to abdominal wall for muscular pain. Labs pending for this am. F/U HIDA on Monday. Admission and Anticipated Discharge Date Admission Date: February 09, 2023 Subjective Patient seen this am Continues w/ N/V with dark foul smelling vomit as prescribed, epigastric abdominal pain worsening. Seems to think the pain medication may be making her nauseous. Physical Exam Constitutional: + thin; + not healthy appearing, not in distress and not diaphoretic Respiratory: normal respiratory effort; no respiratory distress, no labored breathing and does not use accessory muscles Gastrointestinal (Abdomen): Abdominal exam unchanged to last night's non-distended, diffuse TTP mainly epigastric Results & Data Vital Signs (Past 12 Hours) Vital Signs Temp Pulse Pulse Resp BP Pulse Ox O2 Del Method 02/11/23 07:50 36.6 C 95 H 18 117/83 96 Room Air 02/11/23 02:35 36.6 C 76 16 122/88 97 Room Air 02/11/23 00:55 71 02/10/23 23:10 36.5 C 61 16 124/86 97 Room Air PG Care Time/CCT Total # of Minutes Spent Total Time Spent with Patient: Total time spent is greater than 50% in coordination of care (as documented) at patient's floor/unit and/or counseling patient: Coding Level of Care Code 69851 SUB INP/OBS CARE 1/25MIN Diagnoses Abdominal pain R10.9 Abdominal location: unspecified location Nausea & vomiting R11.2 Vomiting type: unspecified (1) Abdominal pain Abdominal location: unspecified location Qualified Code(s): R10.9 - Unspecified abdominal pain (2) Nausea & vomiting Vomiting type: unspecified Qualified Code(s): R11.2 - Nausea with vomiting, unspecified
[2023-02-11] MEDS: PIPERACILLIN/TAZOBACTAM 4.5 GM in DEXTROSE 5% MINI-B 100 ML IV SCH ×2 (08:33→18:23)
[2023-02-11] MEDS: FAMOTIDINE 20 MG in SYRINGE 3 ML IV SCH (08:33)
[2023-02-11] MEDS: ACETAMINOPHEN 1,000 MG/100 ML VIAL IV PRN (08:56)
[2023-02-11 08:59] LABS: Basophils # (auto) 0.04 K/uL (0.00-0.20); Basophils % (auto) 0.5 %; Eosinophils # (auto) 0.09 K/uL (0.00-0.50); Eosinophils % (auto) 1.1 %; Hemoglobin 16.3 g/dl (12.0-16.0); Immature Granulocytes # (auto) 0.03 K/uL (0.01-0.20); Immature Granulocytes % (auto) 0.4 %; Lymphocytes # (auto) 0.97 K/uL (1.20-3.40); Lymphocytes % (auto) 11.9 %; Mean Corpuscular Hemoglobin 30.5 pg (25.0-34.0); Mean Corpuscular Hgb Conc 37.9 g/dL (32.0-36.0); Mean Corpuscular Volume 80.5 fL (80.0-100.0); Mean Platelet Volume 10.3 fL (9.4-12.4); Monocytes # (auto) 0.71 K/uL (0.11-0.59); Monocytes % (auto) 8.7 %; Neutrophils # (auto) 6.28 K/uL (1.40-6.50); Neutrophils % (auto) 77.4 %; Platelet Count 273 K/uL (130-400); RDW Coefficient of Variation 11.9 % (11.5-14.5); RDW Standard Deviation 34.5 fL (36.4-46.3); Red Blood Count 5.34 M/uL (4.20-5.40); White Blood Count 8.12 K/ul (4.8-10.8)
[2023-02-11 09:18] LABS: Albumin Level 3.5 gm/dl (3.4-5.0); BUN Creatinine Ratio 4.9 (10-20); Bilirubin Direct 0.3 mg/dl (0-0.2); Bilirubin,Total 1.4 mg/dl (0.2-1.0); Calcium 7.9 mg/dl (8.6-10.3); Creatinine Clr Calc Pharmacy 101.3 ml/min; Magnesium 1.7 mg/dl (1.7-2.4); Phosphorus 2.5 mg/dl (2.5-4.9); Potassium 3.8 mmol/L (3.5-5.1); Total Protein 6.5 gm/dl (6.0-8.3)
[2023-02-11] MEDS ORDERED: bisacodyL 10 MG SUPP PR STA (09:27)
[2023-02-11] MEDS ORDERED: MAGNESIUM HYDROXIDE SUSP 30 ML UDC PO ONE (09:27)
[2023-02-11] MEDS: PROCHLORPERAZINE 5 MG in SYRINGE 4 ML IV PRN (14:03)
[2023-02-11] MEDS ORDERED: Nursing to Pharmacy Communication SCH (14:45)
--- NOTE | 2023-02-11 15:36 | Hospitalist Progress Note ---
Date of Service February 11, 2023 Assessment & Plan (1) Nausea & vomiting: Plan: 27-year-old female with past medical history significant for allergic rhinitis, vitamin D deficiency, history of intractable migraine, iron deficiency anemia secondary to inadequate dietary iron intake, comes because of ongoing nausea and vomiting some chest discomfort and shortness of breath since several days. She says symptoms started after she was diagnosed with COVID in January 29, 2023. She was in the ER on barney of new year but she improved after IV fluids and DuoNebs and discharged home on albuterol inhaler. Patient still having persistent nausea and vomiting not able to take anything. Not eating. Albuterol inhaler is not working. Having abdominal pain. On and off chest discomfort and shortness of breath. Has some mild cough. Has some headache. Vision is okay. No runny nose or sore throat currently. Currently afebrile. Did not move her bowels for several days. Not micturating much. Hemodynamically stable. COVID-19 virus infection on January 29, 2023-likely the cause for her GI symptoms Nausea and vomiting Abdominal pain States ongoing since she was diagnosed COVID in January 29, 2023 Was in the ER on February 05, 2023 but improved with the fluids and DuoNebs Poor oral intake Will continue IV fluids, IV antiemetics as needed, IV morphine as needed for abdominal pain and IV Pepcid Symptoms have been improving If continues to have more symptoms will ask for GI evaluation Continues to have abdominal pain with nausea and vomiting Appreciate GI input and recommendation Will get ultrasound of the gallbladder to rule out any acute cholecystitis HIDA scan has been requested as well as per GI recommendation Ultrasound is nonconclusive of acute cholecystitis and surgical consultation was sought Appreciate surgery input and recommendation to continue conservative management for now and antibiotic were changed to intravenous Zosyn She still has right upper quadrant and epigastric pain and nausea as before Blood counts remain unremarkable-awaiting HIDA scan on Monday Intravenous famotidine has been changed to Protonix twice daily and morphine has been changed to Dilaudid Constipation Has not had a bowel movement for more than a week as per the patient Denies any abdominal distention CT was negative for any stool burden Abdomen remains soft Not been taking any real food as of yet Will try milk of magnesia, rectal suppository and enema if needed Severe electrolyte imbalance Has hypomagnesemia, hypophosphatemia and hyponatremia Will give supplement and monitor Electrolytes not yet normalized UTI UA suggestive of infection Possible cause of her symptoms Empiric Rocephin Preliminary culture has been negative We will continue antibiotic for at least 3 days Now she is on intravenous Zosyn for GI reason Metabolic acidosis Anion gap Possibly from nausea vomiting and starvation D5 normal saline at rate of 125 mill per hour Will follow repeat labs and repeat ABG-acidosis has been improving Will repeat metabolic panel and electrolytes this afternoon again Electrolytes are getting better Chest pain and shortness of breath Will get chest x-ray PA and lateral view Initial EKG and troponin negative We will follow repeat EKG and troponins DuoNebs as needed for now Doubt any ACS DVT prophylaxis SCDs for now Disposition Med/tele Full code Admission and Anticipated Discharge Date Admission Date: February 09, 2023 Subjective 02/09/2023 The patient was seen and examined in the emergency room in presence of the family members She has been complaining of nausea, vomiting with shortness of breath for the last few days since she has had COVID 19 virus infection on 29 November Has not been able to eat or drink much and does not have any significant bowel movement Denies any urinary symptoms and does not have any fever and or chills 02/10/2023 The patient was seen and examined in medical telemetry unit She continues to have epigastric pain with nausea or vomiting Has not been tolerating any diet Denies any respiratory symptoms 02/11/2023 The patient was seen and examined in the medical telemetry unit She was taking rest peacefully on waking up complaint pain in the epigastrium with nausea and vomiting No fever and or chills Still complains epigastric and right upper quadrant pain Bowel has not moved for a while Review of Systems Review of Systems: All systems reviewed and are unremarkable except as noted below Physical Exam Physical Exam: Sitting on the bed with acute distress due to ongoing nausea and vomiting Constitutional: + ill appearing and + thin Eyes: PERRL, conjunctivae normal, anicteric sclerae ENMT: external ear and nose normal, oropharynx normal Neck: trachea midline, no thyromegaly Respiratory: no respiratory distress Auscultation: lungs clear to auscultation bilaterally Cardiovascular: Rate/Rhythm: regular rate and regular rhythm; not tachycardic Heart Sounds: normal S1 and normal S2; no murmur Extremities: no edema Gastrointestinal (Abdomen): Inspection/Auscultation: normal bowel sounds; abdomen not distended Percussion/Palpation: + abdomen tender (Mildly tender epigastrium) and abdomen soft Musculoskeletal: No acute arthritis involving any of the joint Neurologic: normal touch/pain/proprioception and moves all extremities; no focal motor deficits Psychiatric: A+Ox3, euthymic affect Lymphatic: no cervical or axillary lymphadenopathy Results & Data Results & Data Vital Signs (Past 12 Hours) Vital Signs Temp Pulse Pulse Resp BP Pulse Ox O2 Del Method 02/11/23 07:50 36.6 C 95 H 18 117/83 96 Room Air 02/11/23 06:00 89 Laboratory Results Short CBC 02/11/23 Range/Units 08:45 WBC 8.12 (4.8-10.8) K/ul Hgb 16.3 H (12.0-16.0) g/dl Hct 43.0 (37.0-47.0) % Plt Count 273 (130-400) K/uL BMP 02/10/23 02/11/23 15:38 08:45 Sodium 123 L 130 L Potassium 3.6 3.8 Chloride 87 L 96 L Carbon Dioxide 26 27 BUN 2 L 3 L Creatinine 0.49 L 0.61 Glucose 116 H 125 H Calcium 7.8 L 7.9 L Liver Function 02/11/23 Range/Units 08:45 Total Bilirubin 1.4 H (0.2-1.0) mg/dl Direct Bilirubin 0.3 H (0-0.2) mg/dl AST 38 (13-39) U/L ALT 47 (7-52) U/L Alkaline Phosphatase 58 (34-104) U/L Albumin 3.5 (3.4-5.0) gm/dl Medications Administered Current Inpatient Medications Hydromorphone HCl (Hydromorphone Inj 0.5 Mg/0.5 Ml Syr) 0.5 mg IV Q4H PRN PRN Reason: Pain Stop: 02/25/23 15:26 Acetaminophen (Ofirmev) 1,000 mg in 100 mls @ 400 mls/hr IV Q8H PRN PRN Reason: Pain Stop: 02/13/23 10:25 Last Infusion: 02/11/23 11:57 Dose: Infused Dextrose/Sodium Chloride (D5w And Nss) 1,000 mls @ 125 mls/hr IV .Q8H [facility] Stop: 02/11/23 16:44 Last Admin: 02/11/23 02:09 Dose: 125 mls/hr Piperacillin Sod/Tazobactam (Sod 4.5 gm/ Dextrose) 100 mls @ 25 mls/hr IV Q8H [facility]; Protocol Stop: 02/21/23 00:00 Last Infusion: 02/11/23 14:23 Dose: Infused Prochlorperazine 5 mg/ Syringe 5 mls @ 5 mls/min IV Q6H PRN PRN Reason: Nausea And Vomiting Stop: 03/13/23 11:20 Last Admin: 02/11/23 14:03 Dose: 5 mls/min Pantoprazole Sodium 40 mg/ (Syringe) 10 mls @ 5 mls/min IV BID [facility] Stop: 03/13/23 20:59 Nitroglycerin (Nitroglycerin Sl 0.4 Mg/Tab Tab) 0.4 mg SL Q5M PRN PRN Reason: Chest Pain Stop: 03/11/23 05:25 Ondansetron HCl (Ondansetron Inj 2 Mg/Ml 2 Ml Vial) 4 mg IV Q6H PRN PRN Reason: Nausea Stop: 03/11/23 05:25 Last Admin: 02/11/23 11:19 Dose: 4 mg (1) Nausea & vomiting Vomiting type: unspecified Qualified Code(s): R11.2 - Nausea with vomiting, unspecified
[2023-02-11] MEDS: HYDROmorphone INJ 0.5 MG/0.5 ML SYR IV PRN ×2 (18:15→22:54)
[2023-02-11] MEDS: PANTOprazole 40 MG in SYRINGE 0 ML IV SCH (20:47)
[2023-02-12] MEDS: PROCHLORPERAZINE 5 MG in SYRINGE 4 ML IV PRN ×3 (01:39→20:28)
[2023-02-12] MEDS: PIPERACILLIN/TAZOBACTAM 4.5 GM in DEXTROSE 5% MINI-B 100 ML IV SCH ×3 (01:45→18:10)
[2023-02-12] MEDS: HYDROmorphone INJ 0.5 MG/0.5 ML SYR IV PRN ×5 (03:32→20:38)
[2023-02-12] MEDS: PANTOprazole 40 MG in SYRINGE 0 ML IV SCH ×2 (07:52→20:28)
[2023-02-12 08:05] LABS: Basophils # (auto) 0.04 K/uL (0.00-0.20); Basophils % (auto) 0.5 %; Eosinophils # (auto) 0.16 K/uL (0.00-0.50); Eosinophils % (auto) 1.9 %; Hematocrit (blood only) 42.6 % (37.0-47.0); Hemoglobin 15.4 g/dl (12.0-16.0); Immature Granulocytes # (auto) 0.04 K/uL (0.01-0.20); Immature Granulocytes % (auto) 0.5 %; Lymphocytes # (auto) 1.69 K/uL (1.20-3.40); Lymphocytes % (auto) 20.5 %; Mean Corpuscular Hemoglobin 29.8 pg (25.0-34.0); Mean Corpuscular Hgb Conc 36.2 g/dL (32.0-36.0); Mean Corpuscular Volume 82.6 fL (80.0-100.0); Mean Platelet Volume 10.1 fL (9.4-12.4); Monocytes # (auto) 0.73 K/uL (0.11-0.59); Monocytes % (auto) 8.9 %; Neutrophils # (auto) 5.58 K/uL (1.40-6.50); Neutrophils % (auto) 67.7 %; Platelet Count 253 K/uL (130-400); RDW Coefficient of Variation 11.9 % (11.5-14.5); RDW Standard Deviation 35.8 fL (36.4-46.3); Red Blood Count 5.16 M/uL (4.20-5.40); White Blood Count 8.24 K/ul (4.8-10.8)
[2023-02-12 08:23] LABS: Calcium 8.4 mg/dl (8.6-10.3); Creatinine Clr Calc Pharmacy 92.2 ml/min; Est GFR (African American) 141.6 ml/min; Est GFR (Non-African American) 122.2 ml/min; Magnesium 1.6 mg/dl (1.7-2.4); Potassium 3.9 mmol/L (3.5-5.1)
[2023-02-12] MEDS ORDERED: MAGNESIUM HYDROXIDE SUSP 30 ML UDC PO ONE (09:45)
--- NOTE | 2023-02-12 10:42 | Surgery Progress Note ---
Date of Service February 12, 2023 Assessment & Plan (1) Abdominal pain: (2) Nausea & vomiting: Plan Remains without leukocytosis or neutrophil shift. Has remained afebrile with stable vital signs. Patient this morning does admit that nausea is improved and was able to tolerate some form of oral intake yesterday. Patient was started on Protonix twice daily yesterday. Recommend continuing. May consider trying Carafate in slurry form as previously recommended by GI as well as the patient was noted to be able to tolerate oral intake yesterday. Will follow-up on HIDA scan which will hopefully be done tomorrow for further evaluation of primary GB etiology. Stool studies remain ordered and uncollected as the patient has not had further episodes of diarrhea. Continue current supportive care. This case was personally discussed with Dr. Lei tapia a.m. who agrees. Admission and Anticipated Discharge Date Admission Date: February 09, 2023 Subjective Patient was seen and examined this morning. She was resting in bed quietly prior to my awaking her. She did states she had recently received antiemetic and pain medication. Of note the patient does admit that her nausea is improved. She states abdominal pain is to the same severity when it is present, indicating abdominal pain is not constant. She denies any significant vomiting yesterday. Nurse reports that she did for the first time tolerate some oral intake in the form of Jell-O and liquid. Physical Exam Constitutional: Sleeping, resting quietly NAD Afebrile Respiratory: normal respiratory effort; no respiratory distress, no labored breathing and does not use accessory muscles Gastrointestinal (Abdomen): Abdominal exam is unchanged. She has some mild, diffuse tenderness throughout Voluntary guarding No rebound Results & Data Vital Signs (Past 12 Hours) Vital Signs Temp Pulse Pulse Resp BP BP Pulse Ox 02/12/23 07:46 36.6 C 92 H 18 136/82 97 02/12/23 07:40 36.4 C L 79 14 115/82 96 02/12/23 06:00 71 02/12/23 02:55 36.9 C 86 16 111/75 96 02/11/23 23:10 71 02/11/23 23:07 37.0 C 84 16 112/74 96 O2 Del Method 02/12/23 07:46 Room Air 02/12/23 07:40 Room Air 02/12/23 06:00 02/12/23 02:55 Room Air 02/11/23 23:10 02/11/23 23:07 Room Air PG Care Time/CCT Total # of Minutes Spent Total Time Spent with Patient: Total time spent is greater than 50% in coordination of care (as documented) at patient's floor/unit and/or counseling patient: Coding [place] [address] SUB INP/OBS CARE 25MIN Patient Type Established History Problem Focused Exam Problem Focused Medical Decision Making Straight Forward Diagnoses Abdominal pain R10.9 Abdominal location: unspecified location Nausea & vomiting R11.2 Vomiting type: unspecified (1) Abdominal pain Abdominal location: unspecified location Qualified Code(s): R10.9 - Unspecified abdominal pain (2) Nausea & vomiting Vomiting type: unspecified Qualified Code(s): R11.2 - Nausea with vomiting, unspecified
[2023-02-12] MEDS: SUCRALFATE 1 GM/10 ML UDC PO SCH ×3 (13:15→20:28)
--- NOTE | 2023-02-12 13:22 | Hospitalist Progress Note ---
Date of Service February 12, 2023 Assessment & Plan (1) Nausea & vomiting: Plan: 27-year-old female with past medical history significant for allergic rhinitis, vitamin D deficiency, history of intractable migraine, iron deficiency anemia secondary to inadequate dietary iron intake, comes because of ongoing nausea and vomiting some chest discomfort and shortness of breath since several days. She says symptoms started after she was diagnosed with COVID in January 29, 2023. She was in the ER on bar[place] of [place] year but she improved after IV fluids and DuoNebs and discharged home on albuterol inhaler. Patient still having persistent nausea and vomiting not able to take anything. Not eating. Albuterol inhaler is not working. Having abdominal pain. On and off chest discomfort and shortness of breath. Has some mild cough. Has some headache. Vision is okay. No runny nose or sore throat currently. Currently afebrile. Did not move her bowels for several days. Not micturating much. Hemodynamically stable. COVID-19 virus infection on January 29, 2023-likely the cause for her GI symptoms Nausea and vomiting Abdominal pain States ongoing since she was diagnosed COVID in January 29, 2023 Was in the ER on February 05, 2023 but improved with the fluids and DuoNebs Poor oral intake Will continue IV fluids, IV antiemetics as needed, IV morphine as needed for abdominal pain and IV Pepcid Symptoms have been improving If continues to have more symptoms will ask for GI evaluation Continues to have abdominal pain with nausea and vomiting Appreciate GI input and recommendation Will get ultrasound of the gallbladder to rule out any acute cholecystitis HIDA scan has been requested as well as per GI recommendation Ultrasound is nonconclusive of acute cholecystitis and surgical consultation was sought Appreciate surgery input and recommendation to continue conservative management for now and antibiotic were changed to intravenous Zosyn She still has right upper quadrant and epigastric pain and nausea as before Blood counts remain unremarkable-awaiting HIDA scan on Monday Intravenous famotidine has been changed to Protonix twice daily and morphine has been changed to Dilaudid Clinically a little better but he still has same symptoms Will add sucralfate today and if the HIDA scan tomorrow is negative we will ask GI for possible EGD Constipation Has not had a bowel movement for more than a week as per the patient Denies any abdominal distention CT was negative for any stool burden Abdomen remains soft Not been taking any real food as of yet Will try milk of magnesia, rectal suppository and enema if needed will try milk of magnesia Severe electrolyte imbalance Has hypomagnesemia, hypophosphatemia and hyponatremia Will give supplement and monitor Electrolytes not yet normalized Supplemented electrolytes UTI UA suggestive of infection Possible cause of her symptoms Empiric Rocephin Preliminary culture has been negative We will continue antibiotic for at least 3 days Now she is on intravenous Zosyn for GI reason Metabolic acidosis Anion gap Possibly from nausea vomiting and starvation D5 normal saline at rate of 125 mill per hour Will follow repeat labs and repeat ABG-acidosis has been improving Will repeat metabolic panel and electrolytes this afternoon again Electrolytes are getting better Chest pain and shortness of breath Will get chest x-ray PA and lateral view Initial EKG and troponin negative We will follow repeat EKG and troponins DuoNebs as needed for now Doubt any ACS DVT prophylaxis SCDs for now Disposition Med/tele Full code Admission and Anticipated Discharge Date Admission Date: February 09, 2023 Subjective 02/09/2023 The patient was seen and examined in the emergency room in presence of the family members She has been complaining of nausea, vomiting with shortness of breath for the last few days since she has had COVID 19 virus infection on 29 November Has not been able to eat or drink much and does not have any significant bowel movement Denies any urinary symptoms and does not have any fever and or chills 02/10/2023 The patient was seen and examined in medical telemetry unit She continues to have epigastric pain with nausea or vomiting Has not been tolerating any diet Denies any respiratory symptoms 02/11/2023 The patient was seen and examined in the medical telemetry unit She was taking rest peacefully on waking up complaint pain in the epigastrium with nausea and vomiting No fever and or chills Still complains epigastric and right upper quadrant pain Bowel has not moved for a while 02/12/2023 The patient was seen and examined in medical telemetry unit She still complains to have epigastric/right upper quadrant abdominal pain associated with the nausea and vomiting at times She has been requiring pain medicine [id number] She feels a little better today Review of Systems Review of Systems: All systems reviewed and are unremarkable except as noted below Physical Exam Physical Exam: Sitting on the bed with acute distress due to ongoing nausea and vomiting Constitutional: + ill appearing and + thin Eyes: PERRL, conjunctivae normal, anicteric sclerae ENMT: external ear and nose normal, oropharynx normal Neck: trachea midline, no thyromegaly Respiratory: no respiratory distress Auscultation: lungs clear to auscultation bilaterally Cardiovascular: Rate/Rhythm: regular rate and regular rhythm; not tachycardic Heart Sounds: normal S1 and normal S2; no murmur Extremities: no edema Gastrointestinal (Abdomen): Inspection/Auscultation: normal bowel sounds; abdomen not distended Percussion/Palpation: + abdomen tender (Mildly tender epigastrium) and abdomen soft Neurologic: normal touch/pain/proprioception and moves all extremities; no focal motor deficits Psychiatric: A+Ox3, euthymic affect Lymphatic: no cervical or axillary lymphadenopathy Results & Data Results & Data Vital Signs (Past 12 Hours) Vital Signs Temp Pulse Pulse Resp BP BP Pulse Ox 02/12/23 12:06 36.8 C 69 16 108/72 97 02/12/23 07:46 36.6 C 92 H 18 136/82 97 02/12/23 07:40 36.4 C L 79 14 115/82 96 02/12/23 06:00 71 02/12/23 02:55 36.9 C 86 16 111/75 96 O2 Del Method 02/12/23 12:06 Room Air 02/12/23 07:46 Room Air 02/12/23 07:40 Room Air 02/12/23 06:00 02/12/23 02:55 Room Air Laboratory Results Short CBC 02/12/23 Range/Units 07:47 WBC 8.24 (4.8-10.8) K/ul Hgb 15.4 (12.0-16.0) g/dl Hct 42.6 (37.0-47.0) % Plt Count 253 (130-400) K/uL BMP 02/12/23 07:47 Sodium 132 L Potassium 3.9 Chloride 97 L Carbon Dioxide 29 BUN 4 L Creatinine 0.67 Glucose 100 H Calcium 8.4 L Medications Administered Current Inpatient Medications Hydromorphone HCl (Hydromorphone Inj 0.5 Mg/0.5 Ml Syr) 0.5 mg IV Q4H PRN PRN Reason: Pain Stop: 02/25/23 15:26 Last Admin: 02/12/23 11:37 Dose: 0.5 mg Acetaminophen (Ofirmev) 1,000 mg in 100 mls @ 400 mls/hr IV Q8H PRN PRN Reason: Pain Stop: 02/13/23 10:25 Last Infusion: 02/11/23 11:57 Dose: Infused Piperacillin Sod/Tazobactam (Sod 4.5 gm/ Dextrose) 100 mls @ 25 mls/hr IV Q8H [facility]; Protocol Stop: 02/21/23 00:00 Last Admin: 02/12/23 10:43 Dose: 25 mls/hr Prochlorperazine 5 mg/ Syringe 5 mls @ 5 mls/min IV Q6H PRN PRN Reason: Nausea And Vomiting Stop: 03/13/23 11:20 Last Admin: 02/12/23 07:43 Dose: 5 mls/min Pantoprazole Sodium 40 mg/ (Syringe) 10 mls @ 5 mls/min IV BID [facility] Stop: 03/13/23 20:59 Last Admin: 02/12/23 07:52 Dose: 5 mls/min Nitroglycerin (Nitroglycerin Sl 0.4 Mg/Tab Tab) 0.4 mg SL Q5M PRN PRN Reason: Chest Pain Stop: 03/11/23 05:25 Ondansetron HCl (Ondansetron Inj 2 Mg/Ml 2 Ml Vial) 4 mg IV Q6H PRN PRN Reason: Nausea Stop: 03/11/23 05:25 Last Admin: 02/11/23 11:19 Dose: 4 mg Sucralfate (Sucralfate 1 Gm/10 Ml Udc) 1 gm PO QID [facility] Stop: 03/14/23 12:59 Last Admin: 02/12/23 13:15 Dose: 1 gm (1) Nausea & vomiting Vomiting type: unspecified Qualified Code(s): R11.2 - Nausea with vomiting, unspecified
--- NOTE | 2023-02-12 21:03 | Electrocardiogram Report ---
Test Reason : Blood Pressure : / mmHG Vent. Rate : 072 BPM Atrial Rate : 072 BPM P-R Int : 114 ms QRS Dur : 074 ms QT Int : 412 ms P-R-T Axes : 066 067 057 degrees QTc Int : 451 ms Normal sinus rhythm Normal ECG When compared with ECG of 10-FEB-2023 14:55, No significant change was found Confirmed by Micheal Gan ([id number] on 02/12/2023 9:03:02 PM Referred By: REFERRED SELF Confirmed By:Micheal Gan
[2023-02-13] MEDS: HYDROmorphone INJ 0.5 MG/0.5 ML SYR IV PRN (02:16)
[2023-02-13] MEDS: PIPERACILLIN/TAZOBACTAM 4.5 GM in DEXTROSE 5% MINI-B 100 ML IV SCH ×3 (02:16→17:49)
[2023-02-13 06:37] LABS: Basophils # (auto) 0.05 K/uL (0.00-0.20); Basophils % (auto) 0.7 %; Eosinophils # (auto) 0.17 K/uL (0.00-0.50); Eosinophils % (auto) 2.2 %; Hematocrit (blood only) 39.5 % (37.0-47.0); Hemoglobin 14.5 g/dl (12.0-16.0); Immature Granulocytes # (auto) 0.04 K/uL (0.01-0.20); Immature Granulocytes % (auto) 0.5 %; Lymphocytes # (auto) 2.25 K/uL (1.20-3.40); Lymphocytes % (auto) 29.4 %; Mean Corpuscular Hgb Conc 36.7 g/dL (32.0-36.0); Mean Corpuscular Volume 81.6 fL (80.0-100.0); Mean Platelet Volume 10.3 fL (9.4-12.4); Monocytes # (auto) 0.68 K/uL (0.11-0.59); Monocytes % (auto) 8.9 %; Neutrophils # (auto) 4.47 K/uL (1.40-6.50); Neutrophils % (auto) 58.3 %; Platelet Count 261 K/uL (130-400); RDW Coefficient of Variation 11.8 % (11.5-14.5); Red Blood Count 4.84 M/uL (4.20-5.40); White Blood Count 7.66 K/ul (4.8-10.8)
[2023-02-13 07:00] LABS: Albumin Globulin Ratio 1.2 (0.9-2); Albumin Level 3.2 gm/dl (3.4-5.0); BUN Creatinine Ratio 12.3 (10-20); Bilirubin,Total 1.3 mg/dl (0.2-1.0); Calcium 8.7 mg/dl (8.6-10.3); Creatinine Clr Calc Pharmacy 84.6 ml/min; Est GFR (African American) 132.7 ml/min; Est GFR (Non-African American) 114.5 ml/min; Globulin 2.7 gm/dl (2.5-4.0); Magnesium 1.7 mg/dl (1.7-2.4); Phosphorus 3.5 mg/dl (2.5-4.9); Potassium 3.7 mmol/L (3.5-5.1); Total Protein 5.9 gm/dl (6.0-8.3)
--- NOTE | 2023-02-13 08:04 | Surgery Progress Note ---
Date of Service February 13, 2023 Assessment & Plan (1) Abdominal pain: Plan: 27 F diagnosed with COVID with associated GI upset. She has remained afebrile, HD stable and without leukocytosis through the stay. Nausea is decreasing and patient has been able to tolerate some form of clears. Due to persistence of symptoms, HIDA pending today to evaluate for acute cholecystitis. RUQ US rather nonspecific as there are also findings of colitis noted on CT imaging. Symptoms seem to be slightly improved with the addition of PPI and Carafate. Continue clear liquids for now pending HIDA results. No return of diarrhea so that stool studies were not collected. (2) Nausea & vomiting: Admission and Anticipated Discharge Date Admission Date: February 09, 2023 Subjective Patient seen and examined this a.m. Today she admits that her symptoms are decreasing with lower amounts of abdominal pain as well as decreased nausea vomiting. She did admit to 2-3 episodes of vomiting yesterday that were surrounding the administration of IV pain medications. Physical Exam Constitutional: no acute distress, not ill appearing and not diaphoretic Appears perkier this a.m. Respiratory: normal respiratory effort; no respiratory distress, no labored breathing and does not use accessory muscles Gastrointestinal (Abdomen): Unchanged Results & Data Vital Signs (Past 12 Hours) Vital Signs Temp Pulse Pulse Resp BP Pulse Ox O2 Del Method 02/13/23 07:15 73 02/13/23 02:22 36.8 C 119 H 18 112/79 96 Room Air 02/13/23 01:03 92 H 02/12/23 23:14 36.7 C 81 16 117/81 97 Room Air PG Care Time/CCT Total # of Minutes Spent Total Time Spent with Patient: Total time spent is greater than 50% in coordination of care (as documented) at patient's floor/unit and/or counseling patient: Coding Level of Care Code 11582 SUB INP/OBS CARE 03/02MIN Diagnoses Abdominal pain R10.9 Abdominal location: unspecified location Nausea & vomiting R11.2 Vomiting type: unspecified (1) Abdominal pain Abdominal location: unspecified location Qualified Code(s): R10.9 - Unspecified abdominal pain (2) Nausea & vomiting Vomiting type: unspecified Qualified Code(s): R11.2 - Nausea with vomiting, unspecified
[2023-02-13] MEDS: SUCRALFATE 1 GM/10 ML UDC PO SCH ×4 (08:38→20:33)
[2023-02-13] MEDS: PANTOprazole 40 MG in SYRINGE 0 ML IV SCH ×2 (08:38→20:33)
[2023-02-13] MEDS ORDERED: SINCALIDE IV ONE (13:00)
[2023-02-13] MEDS ORDERED: SODIUM CHLORIDE 0.9% IV ONE (13:00)
--- NOTE | 2023-02-13 17:00 | Nuclear Medicine Report ---
NUCLEAR MEDICINE HEPATOBILIARY SCAN WITH EJECTION FRACTION HISTORY: Abnormal gallbladder on CT. Gallbladder distention. Severe abdominal pain. r/o cholecystiti s COMPARISON: Abdominal ultrasound 02/10/2013. TECHNIQUE: Immediately following the intravenous administration of 5.2 mCi Tc-99m Choletec, dynamic a nterior abdominal imaging pre/post 1 mcg of Kinevac was performed. FINDINGS: Uniform hepatic tracer accumulation is shown. Prompt intrahepatic biliary excretion is seen. The gall bladder, common bile duct, and small bowel are all visualized by 50 minutes. This appearance represen ts the normal sequence of biliary excretion. The gall bladder ejection fraction following administration of Kinevac was 57% (normal >35%). IMPRESSION: 1. No evidence for cystic duct obstruction. 2. Gallbladder ejection fraction calculated to be 57 %. ACT 112: Negative or not required by law. Electronically signed by: Lui Anderson M.D. 02/13/2023 4:58 PM
--- NOTE | 2023-02-13 17:03 | Hospitalist Progress Note ---
Date of Service February 13, 2023 Assessment & Plan (1) Nausea & vomiting: Plan: 27-year-old female with past medical history significant for allergic rhinitis, vitamin D deficiency, history of intractable migraine, iron deficiency anemia secondary to inadequate dietary iron intake, comes because of ongoing nausea and vomiting some chest discomfort and shortness of breath since several days. She says symptoms started after she was diagnosed with COVID in January 29, 2023. She was in the ER on [place] of [place] year but she improved after IV fluids and DuoNebs and discharged home on albuterol inhaler. Patient still having persistent nausea and vomiting not able to take anything. Not eating. Albuterol inhaler is not working. Having abdominal pain. On and off chest discomfort and shortness of breath. Has some mild cough. Has some headache. Vision is okay. No runny nose or sore throat currently. Currently afebrile. Did not move her bowels for several days. Not micturating much. Hemodynamically stable. COVID-19 virus infection on January 29, 2023-likely the cause for her GI symptoms Nausea and vomiting Abdominal pain States ongoing since she was diagnosed COVID in January 29, 2023 Was in the ER on February 05, 2023 but improved with the fluids and DuoNebs Poor oral intake Will continue IV fluids, IV antiemetics as needed, IV morphine as needed for abdominal pain and IV Pepcid Symptoms have been improving If continues to have more symptoms will ask for GI evaluation Continues to have abdominal pain with nausea and vomiting Appreciate GI input and recommendation Will get ultrasound of the gallbladder to rule out any acute cholecystitis HIDA scan has been requested as well as per GI recommendation Ultrasound is nonconclusive of acute cholecystitis and surgical consultation was sought Appreciate surgery input and recommendation to continue conservative management for now and antibiotic were changed to intravenous Zosyn She still has right upper quadrant and epigastric pain and nausea as before Blood counts remain unremarkable-awaiting HIDA scan on Monday Intravenous famotidine has been changed to Protonix twice daily and morphine has been changed to Dilaudid Clinically a little better but he still has same symptoms Will add sucralfate today and if the HIDA scan tomorrow is negative we will ask GI for possible EGD Symptomatically much better today and the HIDA scan came back negative Will start liquid diet today and see how it goes If she becomes more symptomatic will ask GI for possible EGD down the line Constipation Has not had a bowel movement for more than a week as per the patient Denies any abdominal distention CT was negative for any stool burden Abdomen remains soft Not been taking any real food as of yet Will try milk of magnesia, rectal suppository and enema if needed will try milk of magnesia Severe electrolyte imbalance Has hypomagnesemia, hypophosphatemia and hyponatremia Will give supplement and monitor Electrolytes not yet normalized Supplemented electrolytes Will monitor electrolytes UTI UA suggestive of infection Possible cause of her symptoms Empiric Rocephin Preliminary culture has been negative We will continue antibiotic for at least 3 days Now she is on intravenous Zosyn for GI reason Continue Zosyn for now Metabolic acidosis Anion gap Possibly from nausea vomiting and starvation D5 normal saline at rate of 125 mill per hour Will follow repeat labs and repeat ABG-acidosis has been improving Will repeat metabolic panel and electrolytes this afternoon again Electrolytes are getting better Chest pain and shortness of breath Will get chest x-ray PA and lateral view Initial EKG and troponin negative We will follow repeat EKG and troponins DuoNebs as needed for now Doubt any ACS DVT prophylaxis SCDs for now Disposition Med/tele Full code Admission and Anticipated Discharge Date Admission Date: February 09, 2023 Subjective 02/09/2023 The patient was seen and examined in the emergency room in presence of the family members She has been complaining of nausea, vomiting with shortness of breath for the last few days since she has had COVID 19 virus infection on 29 November Has not been able to eat or drink much and does not have any significant bowel movement Denies any urinary symptoms and does not have any fever and or chills 02/10/2023 The patient was seen and examined in medical telemetry unit She continues to have epigastric pain with nausea or vomiting Has not been tolerating any diet Denies any respiratory symptoms 02/11/2023 The patient was seen and examined in the medical telemetry unit She was taking rest peacefully on waking up complaint pain in the epigastrium with nausea and vomiting No fever and or chills Still complains epigastric and right upper quadrant pain Bowel has not moved for a while 02/12/2023 The patient was seen and examined in medical telemetry unit She still complains to have epigastric/right upper quadrant abdominal pain associated with the nausea and vomiting at times She has been requiring pain medicine [id number] She feels a little better today 02/13/2023 The patient was seen and examined in medical telemetry unit She has been a little better today and did not have any nausea since last night Abdominal pain is reasonably controlled and has admitted asking for pain medication [id number] Hepatobiliary scan is normal Will start clears and advance as tolerated Review of Systems Review of Systems: All systems reviewed and are unremarkable except as noted below Physical Exam Physical Exam: Sitting on the bed with acute distress due to ongoing nausea and vomiting Constitutional: + ill appearing and + thin Eyes: PERRL, conjunctivae normal, anicteric sclerae ENMT: external ear and nose normal, oropharynx normal Neck: trachea midline, no thyromegaly Respiratory: no respiratory distress Auscultation: lungs clear to auscultation bilaterally Cardiovascular: Rate/Rhythm: regular rate and regular rhythm; not tachycardic Heart Sounds: normal S1 and normal S2; no murmur Extremities: no edema Gastrointestinal (Abdomen): Inspection/Auscultation: normal bowel sounds; abdomen not distended Percussion/Palpation: + abdomen tender (Mildly tender epigastrium) and abdomen soft Neurologic: normal touch/pain/proprioception and moves all extremities; no focal motor deficits Psychiatric: A+Ox3, euthymic affect Lymphatic: no cervical or axillary lymphadenopathy Results & Data Results & Data Vital Signs (Past 12 Hours) Vital Signs Temp Pulse Pulse Resp BP Pulse Ox O2 Del Method 02/13/23 17:00 78 02/13/23 15:45 78 02/13/23 12:30 37.0 C 105 H 20 105/72 96 Room Air 02/13/23 11:34 Room Air 02/13/23 08:36 36.7 C 95 H 18 108/73 97 Room Air 02/13/23 07:15 73 Laboratory Results Short CBC 02/13/23 Range/Units 05:52 WBC 7.66 (4.8-10.8) K/ul Hgb 14.5 (12.0-16.0) g/dl Hct 39.5 (37.0-47.0) % Plt Count 261 (130-400) K/uL BMP 02/13/23 05:52 Sodium 132 L Potassium 3.7 Chloride 96 L Carbon Dioxide 29 BUN 9 Creatinine 0.73 Glucose 89 Calcium 8.7 Liver Function 02/13/23 Range/Units 05:52 Total Bilirubin 1.3 H (0.2-1.0) mg/dl AST 30 (13-39) U/L ALT 36 (7-52) U/L Alkaline Phosphatase 51 (34-104) U/L Albumin 3.2 L (3.4-5.0) gm/dl Medications Administered Current Inpatient Medications Hydromorphone HCl (Hydromorphone Inj 0.5 Mg/0.5 Ml Syr) 0.5 mg IV Q4H PRN PRN Reason: Pain Stop: 02/25/23 15:26 Last Admin: 02/13/23 02:16 Dose: 0.5 mg Piperacillin Sod/Tazobactam (Sod 4.5 gm/ Dextrose) 100 mls @ 25 mls/hr IV Q8H [facility]; Protocol Stop: 02/21/23 00:00 Last Infusion: 02/13/23 14:44 Dose: Infused Prochlorperazine 5 mg/ Syringe 5 mls @ 5 mls/min IV Q6H PRN PRN Reason: Nausea And Vomiting Stop: 03/13/23 11:20 Last Admin: 02/12/23 20:28 Dose: 5 mls/min Pantoprazole Sodium 40 mg/ (Syringe) 10 mls @ 5 mls/min IV BID [facility] Stop: 03/13/23 20:59 Last Admin: 02/13/23 08:38 Dose: 5 mls/min Nitroglycerin (Nitroglycerin Sl 0.4 Mg/Tab Tab) 0.4 mg SL Q5M PRN PRN Reason: Chest Pain Stop: 03/11/23 05:25 Ondansetron HCl (Ondansetron Inj 2 Mg/Ml 2 Ml Vial) 4 mg IV Q6H PRN PRN Reason: Nausea Stop: 03/11/23 05:25 Last Admin: 02/11/23 11:19 Dose: 4 mg Sucralfate (Sucralfate 1 Gm/10 Ml Udc) 1 gm PO QID [facility] Stop: 03/14/23 12:59 Last Admin: 02/13/23 13:13 Dose: Not Given (1) Nausea & vomiting Vomiting type: unspecified Qualified Code(s): R11.2 - Nausea with vomiting, unspecified
[2023-02-14] MEDS: PIPERACILLIN/TAZOBACTAM 4.5 GM in DEXTROSE 5% MINI-B 100 ML IV SCH ×2 (02:37→11:40)
[2023-02-14 07:18] LABS: Basophils # (auto) 0.04 K/uL (0.00-0.20); Basophils % (auto) 0.6 %; Eosinophils % (auto) 3.2 %; Hematocrit (blood only) 38.1 % (37.0-47.0); Hemoglobin 13.5 g/dl (12.0-16.0); Immature Granulocytes # (auto) 0.01 K/uL (0.01-0.20); Immature Granulocytes % (auto) 0.2 %; Lymphocytes # (auto) 2.31 K/uL (1.20-3.40); Lymphocytes % (auto) 36.6 %; Mean Corpuscular Hemoglobin 29.6 pg (25.0-34.0); Mean Corpuscular Hgb Conc 35.4 g/dL (32.0-36.0); Mean Corpuscular Volume 83.6 fL (80.0-100.0); Mean Platelet Volume 10.1 fL (9.4-12.4); Monocytes # (auto) 0.66 K/uL (0.11-0.59); Monocytes % (auto) 10.5 %; Neutrophils # (auto) 3.09 K/uL (1.40-6.50); Neutrophils % (auto) 48.9 %; Platelet Count 242 K/uL (130-400); RDW Coefficient of Variation 11.8 % (11.5-14.5); RDW Standard Deviation 35.5 fL (36.4-46.3); Red Blood Count 4.56 M/uL (4.20-5.40); White Blood Count 6.31 K/ul (4.8-10.8)
[2023-02-14 07:24] LABS: Albumin Globulin Ratio 1.2 (0.9-2); Albumin Level 3.2 gm/dl (3.4-5.0); Bilirubin,Total 1.3 mg/dl (0.2-1.0); Calcium 8.8 mg/dl (8.6-10.3); Creatinine Clr Calc Pharmacy 82.4 ml/min; Est GFR (African American) 128.4 ml/min; Est GFR (Non-African American) 110.8 ml/min; Globulin 2.7 gm/dl (2.5-4.0); Potassium 3.7 mmol/L (3.5-5.1); Total Protein 5.9 gm/dl (6.0-8.3)
--- NOTE | 2023-02-14 07:28 | Surgery Progress Note ---
Date of Service February 14, 2023 Assessment & Plan (1) Abdominal pain: (2) Nausea & vomiting: Plan: Symptoms resolving. Patient remains HD stable and afebrile. HIDA performed yesterday is negative for gallbladder dysfunction or disease. Follow-up with GI as an outpatient. Patient should continue on Carafate for 2 months. Continue PPI indefinitely until further follow-up and plan by GI. Patient asking for additional oral intake. Recommend advancing diet slowly, consider trying a full liquid diet today. Surgery will sign off at this time. Please reconsult surgery if new concerns arise. Admission and Anticipated Discharge Date Admission Date: February 09, 2023 Subjective Patient seen and examined this a.m. She notes great improvement in her symptoms to the point that she is now tolerating increased liquid oral intake. She continues to take Carafate from which she states she has noted improvement. Physical Exam Constitutional: + thin; not in distress and not diaphore tic Respiratory: normal respiratory effort; no respiratory distress, no labored breathing and does not use accessory muscles Cardiovascular: Rate/Rhythm: regular rate; not tachycardic Gastrointestinal (Abdomen): Decreased TTP Results & Data Vital Signs (Past 12 Hours) Vital Signs Temp Pulse Pulse Resp BP Pulse Ox O2 Del Method 02/14/23 07:22 68 02/14/23 03:06 36.7 C 91 H 16 93/59 L 97 Room Air 02/14/23 02:04 103 H 02/13/23 23:07 36.9 C 77 16 101/67 97 Room Air 02/13/23 19:47 36.7 C 78 16 110/78 98 Room Air PG Care Time/CCT Total # of Minutes Spent Total Time Spent with Patient: Total time spent is greater than 50% in coordination of care (as documented) at patient's floor/unit and/or counseling patient: Coding Level of Care Code 07903 SUB INP/OBS CARE 25MIN Diagnoses Abdominal pain R10.9 Abdominal location: unspecified location Nausea & vomiting R11.2 Vomiting type: unspecified (1) Abdominal pain Abdominal location: unspecified location Qualified Code(s): R10.9 - Unspecified abdominal pain (2) Nausea & vomiting Vomiting type: unspecified Qualified Code(s): R11.2 - Nausea with vomiting, unspecified
[2023-02-14] MEDS: SUCRALFATE 1 GM/10 ML UDC PO SCH ×3 (08:27→17:41)
[2023-02-14] MEDS: PANTOprazole 40 MG in SYRINGE 0 ML IV SCH (08:27)
--- NOTE | 2023-02-14 13:23 | Hospitalist Progress Note ---
Date of Service February 14, 2023 Assessment & Plan (1) Nausea & vomiting: Plan: 27-year-old female with past medical history significant for allergic rhinitis, vitamin D deficiency, history of intractable migraine, iron deficiency anemia secondary to inadequate dietary iron intake, comes because of ongoing nausea and vomiting some chest discomfort and shortness of breath since several days. She says symptoms started after she was diagnosed with COVID in January 29, 2023. She was in the ER on [place] but she improved after IV fluids and DuoNebs and discharged home on albuterol inhaler. Patient still having persistent nausea and vomiting not able to take anything. Not eating. Albuterol inhaler is not working. Having abdominal pain. On and off chest discomfort and shortness of breath. Has some mild cough. Has some headache. Vision is okay. No runny nose or sore throat currently. Currently afebrile. Did not move her bowels for several days. Not micturating much. Hemodynamically stable. COVID-19 virus infection on January 29, 2023-likely the cause for her GI symptoms Nausea and vomiting Abdominal pain States ongoing since she was diagnosed COVID in January 29, 2023 Was in the ER on February 05, 2023 but improved with the fluids and DuoNebs Poor oral intake Will continue IV fluids, IV antiemetics as needed, IV morphine as needed for abdominal pain and IV Pepcid Symptoms have been improving If continues to have more symptoms will ask for GI evaluation Continues to have abdominal pain with nausea and vomiting Appreciate GI input and recommendation Will get ultrasound of the gallbladder to rule out any acute cholecystitis HIDA scan has been requested as well as per GI recommendation Ultrasound is nonconclusive of acute cholecystitis and surgical consultation was sought Appreciate surgery input and recommendation to continue conservative management for now and antibiotic were changed to intravenous Zosyn She still has right upper quadrant and epigastric pain and nausea as before Blood counts remain unremarkable-awaiting HIDA scan on Monday Intravenous famotidine has been changed to Protonix twice daily and morphine has been changed to Dilaudid Clinically a little better but he still has same symptoms Will add sucralfate today and if the HIDA scan tomorrow is negative we will ask GI for possible EGD Symptomatically much better today and the HIDA scan came back negative Will start liquid diet today and see how it goes Much better today without any significant symptoms-no more abdominal pain, nausea and or vomiting bowel is moved Will advance diet to regular and if tolerated should be discharged home this afternoon Constipation Has not had a bowel movement for more than a week as per the patient Denies any abdominal distention CT was negative for any stool burden Abdomen remains soft Not been taking any real food as of yet Will try milk of magnesia, rectal suppository and enema if needed will try milk of magnesia Bowel is moved Severe electrolyte imbalance Has hypomagnesemia, hypophosphatemia and hyponatremia Will give supplement and monitor Electrolytes not yet normalized Supplemented electrolytes Will monitor electrolytes Electrolytes are normalized UTI UA suggestive of infection Possible cause of her symptoms Empiric Rocephin Preliminary culture has been negative We will continue antibiotic for at least 3 days Now she is on intravenous Zosyn for GI reason Continue Zosyn for now Will give Augmentin for few more days on discharge Metabolic acidosis Anion gap Possibly from nausea vomiting and starvation D5 normal saline at rate of 125 mill per hour Will follow repeat labs and repeat ABG-acidosis has been improving Will repeat metabolic panel and electrolytes this afternoon again Electrolytes are getting better Chest pain and shortness of breath Will get chest x-ray PA and lateral view Initial EKG and troponin negative We will follow repeat EKG and troponins DuoNebs as needed for now Doubt any ACS DVT prophylaxis SCDs for now Disposition Med/tele Full code Admission and Anticipated Discharge Date Admission Date: February 09, 2023 Subjective 02/09/2023 The patient was seen and examined in the emergency room in presence of the family members She has been complaining of nausea, vomiting with shortness of breath for the last few days since she has had COVID 19 virus infection on 29 November Has not been able to eat or drink much and does not have any significant bowel movement Denies any urinary symptoms and does not have any fever and or chills 02/10/2023 The patient was seen and examined in medical telemetry unit She continues to have epigastric pain with nausea or vomiting Has not been tolerating any diet Denies any respiratory symptoms 02/11/2023 The patient was seen and examined in the medical telemetry unit She was taking rest peacefully on waking up complaint pain in the epigastrium with nausea and vomiting No fever and or chills Still complains epigastric and right upper quadrant pain Bowel has not moved for a while 02/12/2023 The patient was seen and examined in medical telemetry unit She still complains to have epigastric/right upper quadrant abdominal pain associated with the nausea and vomiting at times She has been requiring pain medicine [id number] She feels a little better today 02/13/2023 The patient was seen and examined in medical telemetry unit She has been a little better today and did not have any nausea since last night Abdominal pain is reasonably controlled and has admitted asking for pain medication [id number] Hepatobiliary scan is normal Will start clears and advance as tolerated 02/14/2023 The patient was seen and examined in medical telemetry unit and in the COVID room She has been feeling a lot better today Pain is no longer the and she has been tolerating liquid diet Has had her bowel movement She will have regular diet at lunch and if she can tolerate she will be d ischarged this afternoon Review of Systems Review of Systems: All systems reviewed and are unremarkable except as noted below Physical Exam Physical Exam: Sitting on the bed with acute distress due to ongoing nausea and vomiting Constitutional: + thin; not ill appearing Eyes: PERRL, conjunctivae normal, anicteric sclerae ENMT: external ear and nose normal, oropharynx normal Neck: trachea midline, no thyromegaly Respiratory: no respiratory distress Auscultation: lungs clear to auscultation bilaterally Cardiovascular: Rate/Rhythm: regular rate and regular rhythm; not tachycardic Heart Sounds: normal S1 and normal S2; no murmur Extremities: no edema Gastrointestinal (Abdomen): Inspection/Auscultation: normal bowel sounds; abdomen not distended Percussion/Palpation: abdomen soft; abdomen nontender Neurologic: normal touch/pain/proprioception and moves all extremities; no focal motor deficits Psychiatric: A+Ox3, euthymic affect Lymphatic: no cervical or axillary lymphadenopathy Results & Data Results & Data Vital Signs (Past 12 Hours) Vital Signs Temp Pulse Pulse Resp BP Pulse Ox O2 Del Method 02/14/23 12:25 36.8 C 88 18 120/76 100 Room Air 02/14/23 08:41 36.8 C 78 18 111/74 97 Room Air 02/14/23 07:22 68 02/14/23 03:06 36.7 C 91 H 16 93/59 L 97 Room Air 02/14/23 02:04 103 H Laboratory Results Short CBC 02/14/23 Range/Units 06:20 WBC 6.31 (4.8-10.8) K/ul Hgb 13.5 (12.0-16.0) g/dl Hct 38.1 (37.0-47.0) % Plt Count 242 (130-400) K/uL BMP 02/14/23 06:20 Sodium 134 L Potassium 3.7 Chloride 97 L Carbon Dioxide 31 BUN 12 Creatinine 0.75 Calcium 8.8 Liver Function 02/14/23 Range/Units 06:20 Total Bilirubin 1.3 H (0.2-1.0) mg/dl AST 39 (13-39) U/L ALT 40 (7-52) U/L Alkaline Phosphatase 46 (34-104) U/L Albumin 3.2 L (3.4-5.0) gm/dl Medications Administered Current Inpatient Medications Hydromorphone HCl (Hydromorphone Inj 0.5 Mg/0.5 Ml Syr) 0.5 mg IV Q4H PRN PRN Reason: Pain Stop: 02/25/23 15:26 Last Admin: 02/13/23 02:16 Dose: 0.5 mg Piperacillin Sod/Tazobactam (Sod 4.5 gm/ Dextrose) 100 mls @ 25 mls/hr IV Q8H SANDRA; Protocol Stop: 02/21/23 00:00 Last Admin: 02/14/23 11:40 Dose: 25 mls/hr Prochlorperazine 5 mg/ Syringe 5 mls @ 5 mls/min IV Q6H PRN PRN Reason: Nausea And Vomiting Stop: 03/13/23 11:20 Last Admin: 02/12/23 20:28 Dose: 5 mls/min Pantoprazole Sodium 40 mg/ (Syringe) 10 mls @ 5 mls/min IV BID SANDRA Stop: 03/13/23 20:59 Last Admin: 02/14/23 08:27 Dose: 5 mls/min Nitroglycerin (Nitroglycerin Sl 0.4 Mg/Tab Tab) 0.4 mg SL Q5M PRN PRN Reason: Chest Pain Stop: 03/11/23 05:25 Ondansetron HCl (Ondansetron Inj 2 Mg/Ml 2 Ml Vial) 4 mg IV Q6H PRN PRN Reason: Nausea Stop: 03/11/23 05:25 Last Admin: 02/11/23 11:19 Dose: 4 mg Sucralfate (Sucralfate 1 Gm/10 Ml Udc) 1 gm PO QID SANDRA Stop: 03/14/23 12:59 Last Admin: 02/14/23 12:23 Dose: 1 gm (1) Nausea & vomiting Vomiting type: unspecified Qualified Code(s): R11.2 - Nausea with vomiting, unspecified
[2023-02-14] MEDS ORDERED: AMOXICILLIN/CLAVULANATE 500 MG TAB PO SCH (17:00)
[2023-02-14] MEDS ORDERED: PANTOprazole 40 MG TAB PO SCH (21:00)
--- NOTE | 2023-02-15 09:15 | Discharge Summary ---
Date of Service February 14, 2023 Admission HPI Per Admitting Provider 27-year-old female with past medical history significant for allergic rhinitis, vitamin D deficiency, history of intractable migraine, iron deficiency anemia secondary to inadequate dietary iron intake, comes because of ongoing nausea and vomiting some chest discomfort and shortness of breath since several days. She says symptoms started after she was diagnosed with COVID on January 29, 2023. She was in the ER [place] but she improved after IV fluids and DuoNebs and discharged home on albuterol inhaler. Patient still having persistent nausea and vomiting not able to take anything. Not eating. Albuterol inhaler is not working. Having abdominal pain. On and off chest discomfort and shortness of breath. Has some mild cough. Has some headache. Vision is okay. No runny nose or sore throat currently. Currently afebrile. Did not move her bowels for several days. Not micturating much. Hemodynamically stable. Past medical history. As mentioned above Past surgical history. Dental surgery. Social history. Former smoker. No alcohol use. No drug use. Family history. Maternal grandmother had cancer. Maternal grandfather had diabetes. Mother has hypertension. Admission Exam Per Admitting Provider Physical Exam: General- Not in distress Head- atraumatic Eyes- PERRL. ENT- oropharynx dry Neck- supple, no JVD. Lungs- clear to auscultation no wheezing or crackles. Heart- regular rhythm; no murmur, no gallop. Abdomen- normal bowel sounds, soft, diffuse mild tender no distension Extremities- no pretibial edema, no erythema seen. Neuro- alert, oriented x 3; PERRL no facial palsy; no dysarthria; moves extremities. Skin- warm & dry Principal Diagnosis Abdominal pain with nausea and vomiting, COVID-19 virus infection, possible nonspecific colitis Discharge Exam Sitting on the bed with acute distress due to ongoing nausea and vomiting Constitutional + thin; not ill appearing Eyes PERRL, conjunctivae normal, anicteric sclerae ENMT external ear and nose normal, oropharynx normal Neck trachea midline, no thyromegaly Respiratory no respiratory distress Auscultation: lungs clear to auscultation bilaterally Cardiovascular Rate/Rhythm: regular rate and regular rhythm; not tachycardic Heart Sounds: normal S1 and normal S2; no murmur Extremities: no edema Gastrointestinal (Abdomen) Inspection/Auscultation: normal bowel sounds; abdomen not distended Percussion/Palpation: abdomen soft; abdomen nontender Neurologic normal touch/pain/proprioception and moves all extremities; no focal motor deficits Psychiatric A+Ox3, euthymic affect Lymphatic no cervical or axillary lymphadenopathy Discharge Data Allergies Allergy/AdvReac Type Severity Reaction Status Date / Time Pollen Allergy Intermediate Sneezing Uncoded 02/05/23 17:23 Consultations 02/08/23 23:30 ED Decision to Admit Stat 02/10/23 07:49 Consult Gastroenterology Routine 02/10/23 16:46 Consult General Surgery Routine Ordered Studies 02/08/23 18:32 CT abd pelvis IV con only Stat 02/10/23 02:19 CTA abdomen pelvis w con [CT angio abdomen pelvis w con] Stat 02/10/23 10:28 US gallbladder Routine Hospital Course (1) Nausea & vomitin-year-old female with past medical history significant for allergic rhinitis, vitamin D deficiency, history of intractable migraine, iron deficiency anemia secondary to inadequate dietary iron intake, comes because of ongoing nausea and vomiting some chest discomfort and shortness of breath since several days. She says symptoms started after she was diagnosed with COVID in January 29, 2023. She was in the ER on [place] of but she improved after IV fluids and DuoNebs and discharged home on albuterol inhaler. Patient still having persistent nausea and vomiting not able to take anything. Not eating. Albuterol inhaler is not working. Having abdominal pain. On and off chest discomfort and shortness of breath. Has some mild cough. Has some headache. Vision is okay. No runny nose or sore throat currently. Currently afebrile. Did not move her bowels for several days. Not micturating much. Hemodynamically stable. COVID-19 virus infection on January 29, 2023-likely the cause for her GI symptoms Nausea and vomiting Abdominal pain States ongoing since she was diagnosed COVID in January 29, 2023 Was in the ER on February 05, 2023 but improved with the fluids and DuoNebs Poor oral intake Will continue IV fluids, IV antiemetics as needed, IV morphine as needed for abdominal pain and IV Pepcid Symptoms have been improving If continues to have more symptoms will ask for GI evaluation Continues to have abdominal pain with nausea and vomiting Appreciate GI input and recommendation Will get ultrasound of the gallbladder to rule out any acute cholecystitis HIDA scan has been requested as well as per GI recommendation Ultrasound is nonconclusive of acute cholecystitis and surgical consultation was sought Appreciate surgery input and recommendation to continue conservative management for now and antibiotic were changed to intravenous Zosyn She still has right upper quadrant and epigastric pain and nausea as before Blood counts remain unremarkable-awaiting HIDA scan on Monday Intravenous famotidine has been changed to Protonix twice daily and morphine has been changed to Dilaudid Clinically a little better but he still has same symptoms Will add sucralfate today and if the HIDA scan tomorrow is negative we will ask GI for possible EGD Symptomatically much better today and the HIDA scan came back negative Will start liquid diet today and see how it goes Much better today without any significant symptoms-no more abdominal pain, nausea and or vomiting bowel is moved Will advance diet to regular and if tolerated should be discharged home this afternoon Constipation Has not had a bowel movement for more than a week as per the patient Denies any abdominal distention CT was negative for any stool burden Abdomen remains soft Not been taking any real food as of yet Will try milk of magnesia, rectal suppository and enema if needed will try milk of magnesia Bowel is moved Severe electrolyte imbalance Has hypomagnesemia, hypophosphatemia and hyponatremia Will give supplement and monitor Electrolytes not yet normalized Supplemented electrolytes Will monitor electrolytes Electrolytes are normalized UTI UA suggestive of infection Possible cause of her symptoms Empiric Rocephin Preliminary culture has been negative We will continue antibiotic for at least 3 days Now she is on intravenous Zosyn for GI reason Continue Zosyn for now Will give Augmentin for few more days on discharge Metabolic acidosis Anion gap Possibly from nausea vomiting and starvation D5 normal saline at rate of 125 mill per hour Will follow repeat labs and repeat ABG-acidosis has been improving Will repeat metabolic panel and electrolytes this afternoon again Electrolytes are getting better Chest pain and shortness of breath Will get chest x-ray PA and lateral view Initial EKG and troponin negative We will follow repeat EKG and troponins DuoNebs as needed for now Doubt any ACS DVT prophylaxis SCDs for now Disposition Med/tele Full code Total Time Total Time Spent Total Time Spent (In Minutes): 35 minutes Discharge Plan Discharge Items Patient Disposition: Home - Self-Care Reason For Visit: N/V, UTI, METABOLIC ACIDOSIS Discharge Diagnosis: Abdominal pain with nausea and vomiting, COVID-19 virus infection, possible nonspecific colitis Condition on Discharge: Good Activity: Resume your previous activity Non-emergency contact: Primary Care Provider Call non-emergency contact if: you have any medication questions and your symptoms worsen Follow-up/Referrals: Bailee Hartley M.D. [Primary Care Provider] - Cinthya Sahu MD [Hospitalist] - (Date & Time 02/22/2023 11:20 AM Provider Cinthya Sahu MD Department Family Medicine [facility] ) Diet: Regular Addtl Attending Provider Instructions: Please take your medications as advised Finish the course of antibiotic Please have follow-up appointment with your healthcare provider Pending Studies at Discharge: No Stand-Alone Forms: My [facility] [employer], Smoking Cessation Medications and DC Order Prescriptions: New sucralfate 100 mg/mL Suspension 1 g PO QID Qty: 120 0RF pantoprazole 40 mg Tablet,Delayed Release (Dr/Ec) 40 mg PO BID Qty: 60 0RF amoxicillin-pot clavulanate 500-125 mg Tablet 1 tab PO BIDM Qty: 10 0RF Continued ondansetron 4 mg tablet,disintegrating 4 mg PO Q6H PRN (Reason: nausea and vomiting) Qty: 15 0RF rizatriptan 5 mg tablet 5 mg PO UD PRN (Reason: Migraine Headache) Rx Instructions: take 5 mg orally once at onset of headache, may repeat once after 2 hour if needed Discontinued pantoprazole 20 mg tablet,delayed release (DR/EC) 20 mg PO DAILY Discharge Orders: Discharge Order (Routine); Ordered 02/14/23 Ordered By: Trinidad Odom Admission Data Admit Date/Time: 02/09/23 03:59 Attending Provider: Trinidad Odom Admit Provider: Melecio Barron Primary Care Provider: Bailee Hartley Other Providers: Melecio Barron; Monica Ruiz; Joni Guzman; Gloria Barber; Darlyn He; Socorro Pride; Trae Pettit; Tyree Lemus; Ghulam Calderón; Joss Quintero; Alon Tang; Urbano Alcocer; Dinorah Ferguson; Jody Proctor; Lottie Zayas; Leola Jeff; Ingrid Llamas; Antelmo Mathew; Yared Simpson; Alexa Martin; Hussein Alexander Jr; Mariola Weston Other Interventions: Discharge Summary Assessment (RN) Last Done: 02/14/23 15:00
== END 2023-02-14 18:55 | disposition home or self-care (01) | DRG 391 ==
LOC: ED 18:21 → SUATTDRO 02-09 03:59 → EDINP 02-09 03:59 → 2W 02-09 05:26